=== PATIENT | male | born 1970 | race Caucasian/White ===

== ENCOUNTER 2023-09-23 07:47 | Emergency (ER) | payer BC, SELFPAY ==
--- NOTE | ~2023-09-23 | XR_ITS ---
EXAMINATION: XR CHEST CLINICAL INFORMATION: Productive cough COMPARISON: Chest 09/24/2018 TECHNIQUE: 2 views of the chest were obtained. 9:48 AM FINDINGS: No significant abnormality is noted involving the heart, lungs, mediastinum, bony thorax or soft tissues. XR/XR chest 2V IMPRESSION: No acute cardiopulmonary disease.
[2023-09-23 08:21] VITALS: BP 169/86; PULSE 75; RESP 17; TEMP 36.9; O2SAT 97; BMI 25.8
[2023-09-23 09:04] LABS: COVID-19 Test Negative (Negative); IDNOW Serial# 08D9AD1C; IDNOW Serial# 9DB6401D; Influenza A Negative (Negative)
[2023-09-23 09:05] LABS: Influenza B2 Negative (Negative)
--- NOTE | 2023-09-23 10:15 | ED_ITS ---
HPI - URI/Sore Throat General Chief Complaint: Upper Respiratory Symptoms Stated Complaint: Flu Symptoms Time Seen by Provider: 09/23/23 09:18 Source: patient, RN notes reviewed and old records reviewed Mode of arrival: ambulatory History of Present Illness HPI Narrative: 53-year-old male with no significant past medical history presenting to the ED complaining of subjective fever, chills, sweats, productive cough, body aches/myalgias & right eye erythema/crusting x few days. Admits to multiple sick contacts. Reports mild SOB. Denies chest pain, trouble, pedal edema, difficulty or inability to swallow, ear pain. Admits to wearing glasses and contacts. Denies foreign body sensation, vision change or loss Related Data Previous Rx's Medication Instructions Recorded benzonatate 100 mg capsule 100 mg PO TID PRN cough #14 caps 09/23/23 ciprofloxacin HCl 0.3 % eye drops See Rx Instructions ophthalmic 09/23/23 (eye) .COMPLEX #2.5 mL fluticasone propionate 50 2 spray intranasal DAILY #16 grams 09/23/23 mcg/actuation nasal spray,suspension (Flonase Allergy Relief) Allergies Allergy/AdvReac Type Severity Reaction Status Date / Time No Known Allergies Allergy Verified 09/23/23 08:21 Review of Systems Review of Systems: Constitutional:+Fever, + Chills, + fatigue Eye: +erythema ENT/Mouth: No Ear Pain, + Nasal Congestion, No Sinus Pain, No Hoarseness, No sore throat, + Rhinorrhea, No Swallowing Difficulty Cardiovascular: No Chest Pain, + SOB Respiratory: + Cough, + Sputum, No Wheezing Gastrointestinal: No Nausea, No Vomiting, No Diarrhea, No Constipation, No Abdominal pain Musculoskeletal: No joint pain, +myalgias, No Joint Swelling Skin: No Skin Lesions, No rash Neuro: No Weakness, No Numbness, No Paresthesias Yes all other systems are reviewed and are negative Constitutional: Constitutional: Reports as per [facility] Past Medical History Attestation statement: The following information was validated with the patient. Source: old records reviewed Onset Date is defined in the Problem List Problems that require an onset date and time if occurred within 24 hrs of arrival to the ED Aortic Dissection and Rupture; Neurologic impairment; Cardiopulmonary Arrest; Endotracheal Intubation; Insertion or Replacement of Mechanical Circulatory Assist Device Social History Social History Advance Directives: No Physical Exam Vital Signs: Vital Signs: Last Vital Signs Temp 98.5 F 09/23/23 08:21 Pulse 75 09/23/23 08:21 Resp 16 09/23/23 10:45 BP 169/86 H 09/23/23 08:21 Pulse Ox 97 09/23/23 08:21 O2 Del Method Room Air 09/23/23 08:21 BMI result Body Mass Index 25.8 Const: General: cooperative, healthy appearing and no acute distress Orientation/consciousness: patient oriented x3 Limitations: no limitations HEENT: Head: Yes normal to inspection and Yes atraumatic Ears: hearing grossly normal bilaterally, external ears normal and TM's normal bilaterally General nose exam: Normal external nose present Face and sinus: Yes normal facial exam Mouth: Normal oral and palatal mucosa present Throat: Yes posterior oropharynx normal, Yes uvula midline and No peritonsillar mass Eyes: General: appearance normal, both eyes and all related structures Conjunctivae: conjunctival abnormal right conjunctival injection circumcorneal Pupils: Equal, round and reactive pupils present EOM: EOMs intact b ilaterally Direct Ophthalmoscopy: no photophobia Neck: Neck: Yes normal visual inspection and Yes no meningeal signs Resp: Effort & Inspection: normal respiratory effort and no respiratory distress Auscultation: clear to auscultation bilaterally, no crackles and no wheezes Cardio: Rate: regular rate Heart sounds: S1 normal heart sound present and S2 normal heart sound present Skin: Rashes: no rashes Wounds: no wounds Neuro: General: patient oriented x3, tone normal and no meningeal signs Cranial nerves: Yes CN's II-XII intact bilaterally and Yes Equal, round and reactive pupils present Gait exam (Neuro): Normal gait present Extrem: General: Yes normal to inspection Course Course Course Narrative: -COVID and flu negative -CXR unremarkable Results discussed with patient including worrisome signs and symptoms and strict return precautions, and when to return to the emergency department. They verbalized understanding and feel safe for discharge at this time. Medications Administered Discontinued Medications Generic Name Dose Route Start Last Admin Trade Name Freq PRN Reason Stop Dose Admin Albuterol Sulfate 2 puff 09/23/23 09:40 09/23/23 10:45 Albuterol Sulfate 90 Mcg 8 Gm Inhaler INHALE 09/23/23 09:41 2 puff ONCE ONE Administration Ketorolac Tromethamine 30 mg 09/23/23 10:35 09/23/23 10:58 Ketorolac Tromethamine 30 Mg/Ml Vial IM 09/23/23 10:36 30 mg ONCE ONE Administration Medical Decision Making Medical Decision Making [facility] Narrative: 53-year-old male with no significant past medical history presenting to the ED complaining of subjective fever, chills, sweats, productive cough, body aches/myalgias & right eye erythema/crusting x few days. On exam vital signs stable, NAD, nontoxic appearing, lungs CTA, oropharynx WNL, right eye with conjunctival injection. Concern for viral illness vs conjunctivitis vs pneumonia/bronchitis. Low suspicion for corneal abrasion/ulceration, periorbital/orbital cellulitis or W[employer]/retropharyngeal abscess Plan: Viral testing, CXR, albuterol inhaler for discharge Please refer to course for remaining clinical decision making, interpretation of labs/imaging results, and discussions with consultants and/or family members. Differential Diagnosis Differential Diagnoses: The differential diagnosis associated with the presentation includes As above Lab Data [facility] Lab Attestation statement: I reviewed the patient's lab results. Labs: Lab Results 09/23/23 Range/Units 08:44 COVID-19 (VÍCTOR) Negative (Negative) COVID-19 Clin Com See Note Influenza Type A (PINO) Negative (Negative) Influenza Type B (PINO) Negative (Negative) Influenza A & B Note See Note Independent Interpretation I performed an independent interpretation of an: Plain X-Ray Radiology Impression Discussion of test interpretation with radiology: I have reviewed the radiologist's reading. External Record Review External record reviewed: Inpatient record, Office record, Outpatient record, Prior outpatient labs, Prior outpatient radiology, Primary care record and Outside ED record Tests considered The following testing was considered but not selected: As above Prescription Management I considered prescription management with: Pain Medication, Antiviral and Antibiotic Discharge Plan Discharge Clinical Impression: Upper respiratory infection, Conjunctivitis Patient Disposition: Home, Self-Care Instructions: Upper Respiratory Infection (DC), Conjunctivitis (ED) Additional Instructions: You have a virus --No antibiotics are indicated at this time, your x-ray does not show pneumonia You also have conjunctivitis, ciprofloxacin eye drops will help treat this. Please avoid wearing contacts, change your contacts as well as your pillow cases, this is contagious. Wash your hands, avoid touching eye Tessalon Perles are for cough, take as needed. Flonase as a nasal decongestant Make sure you are staying hydrated. Drink plenty of fluids. Rest Alternate Tylenol and Motrin at home as needed for body aches and fever Follow-up with your doctor. If symptoms persist or worsen return to the emergency department *If you are a child & not tolerating liquid or urinating for more than 6 hours, or fevers are uncontrolled with medications at home, return to the emergency department* Prescriptions: New ciprofloxacin HCl 0.3 % drops See Rx Instructions .ROUTE .COMPLEX Qty: 2.5 0RF Rx Instructions: put 1-2 drps in affected eye(s) every 2hr up to 8 times/day x2days; then 4 times/day x5days benzonatate 100 mg capsule 100 mg PO TID PRN (Reason: cough) Qty: 14 0RF fluticasone propionate [Flonase Allergy Relief] 50 mcg/actuation spray,suspension 2 spray intranasal DAILY Qty: 16 0RF Rx Instructions: administer into each nostril Referrals: Evan Rosa MD [Primary Care Provider] - Stand Alone Forms: Work/School Release Interventions: ED Discharge Assessment Last Done: 09/23/23 11:09 Discharge Date/Time: 09/23/23 11:10
[2023-09-23 10:45] VITALS: RESP 16
[2023-09-23] MEDS: Albuterol Sulfate 90 MCG 8 GM INHALER 2 PUFF INHALE (10:45)
[2023-09-23] MEDS: Ketorolac Tromethamine 30 MG/ML VIAL IM (10:58)
== END 2023-09-23 11:10 | disposition home or self-care (01) ==
PROVIDERS: Emergency Provider Emergency Medicine Emergency Medical Services; PCP Hospitalist
DX: J06.9 Acute upper respiratory infection, unspecified (principal); H10.9 Unspecified conjunctivitis; R50.9 Fever, unspecified; M79.10 Myalgia, unspecified site; R05.9 Cough, unspecified; R06.02 Shortness of breath; Z11.52 Encounter for screening for COVID-19; Z20.822 Contact with and (suspected) exposure to COVID-19; Z79.899 Other long term (current) drug therapy
CPT/HCPCS: 71046; 87502; 87635; 96372; 99284; J1885

== ENCOUNTER 2023-09-29 11:51 | Emergency (ER) | payer BC, SELFPAY ==
--- NOTE | 2023-09-29 | ECG_ITS ---
Test Reason : cp Blood Pressure : / mmHG Vent. Rate : 083 BPM Atrial Rate : 083 BPM P-R Int : 154 ms QRS Dur : 088 ms QT Int : 348 ms P-R-T Axes : 044 006 014 degrees QTc Int : 408 ms Normal sinus rhythm Minimal voltage criteria for LVH, may be normal variant ( R in aVL ) Nonspecific T wave abnormality Abnormal ECG When compared with ECG of 24-SEP-2018 18:30, Nonspecific T wave abnormality now evident in Lateral leads Referred By: Generic ED Physician Electronically Signed By:SHALONDA DURBIN
--- NOTE | ~2023-09-29 | XR_ITS ---
EXAMINATION: XR CHEST CLINICAL INFORMATION: Difficulty breathing COMPARISON: 09/23/2023 TECHNIQUE: 2 views of the chest were obtained. FINDINGS: No significant abnormality is noted involving the heart, lungs, mediastinum, bony thorax or soft tissues. XR/XR chest 2V IMPRESSION: Unremarkable examination.
[2023-09-29 12:00] VITALS: BP 155/81; PULSE 94; RESP 20; TEMP 36.3; O2SAT 97; BMI 25.8
--- NOTE | 2023-09-29 12:00 | ED_ITS ---
HPI - General Adult General Chief complaint: Upper Respiratory Symptoms Stated complaint: diff breathing/ chest pain Time Seen by Provider: 09/29/23 12:46 Source: patient Mode of arrival: ambulatory Limitations: no limitations History of Present Illness HPI narrative: Patient is a 53 year old assigned male at with no reported medical history presenting to the emergency department today with persistent cough. Patient states that he was seen on 09/23/2023 with the same symptoms and they have not resolved. Patient denies any dizziness, lightheadedness, abdominal pain, nausea, vomiting, fever, chills, blurry vision, double vision, loss of vision, chest pain, difficulty breathing, shortness of breath, back pain, night sweats, pain with urination, increased urinary frequency, increased urinary urgency, blood in his urine or stool, syncope or a near syncopal episode, recent trauma or falls, bowel incontinence, bladder incontinence, bowel retention, bladder retention, or any other complaints at this time. Onset (ago): day(s) (7) Severity: mild Severity scale (1-10): 3 Relieving factors: none Exacerbating factors: none Associated symptoms: cough Related Data Previous Rx's Medication Instructions Recorded benzonatate 100 mg capsule 100 mg PO TID PRN cough #14 caps 09/23/23 ciprofloxacin HCl 0.3 % eye drops See Rx Instructions ophthalmic 09/23/23 (eye) .COMPLEX #2.5 mL fluticasone propionate 50 2 spray intranasal DAILY #16 grams 09/23/23 mcg/actuation nasal spray,suspension (Flonase Allergy Relief) doxycycline hyclate 100 mg tablet 100 mg PO BID 7 days #14 tabs 09/29/23 prednisone 20 mg tablet 20 mg PO DAILY 7 days #7 tabs 09/29/23 Allergies Allergy/AdvReac Type Severity Reaction Status Date / Time No Known Allergies Allergy Verified 09/29/23 12:00 Review of Systems Constitutional: Constitutional: Reports no additional constitutional complaints, Denies chills, Denies fever(s) and Denies night sweats Eyes: Eyes: Reports no additional eye complaints, Denies blurry vision, Denies change in vision, Denies diplopia, Denies eye discharge, Denies loss of vision and Denies eye pain ENT: Denies dizziness Cardiovascular: Cardiovascular: Reports no additional cardiovascular complaints, Denies chest pain, Denies lightheadedness, Denies Loss of Consciousness and Denies dyspnea Respiratory: Respiratory: Reports no additional respiratory complaints, Reports cough and Denies dyspnea Gastrointestinal: Gastrointestinal: Reports no additional gastrointestinal complaints, Denies abdominal pain, Denies melena, Denies hematochezia, Denies change in bowel habits and Denies change in stool character Genitourinary: Genitourinary: Reports no additional male genitourinary complaints, Denies hematuria, Denies oliguria, Denies difficulty urinating, Denies dysuria, Denies urinary frequency, Denies urinary hesitancy, Denies urinary incontinence and Denies urinary urgency Musculoskeletal: Musculoskeletal: Reports no additional musculoskeletal complaints, Denies numbness and Denies tingling Neurologic: Denies dizziness, Denies loss of vision, Denies numbness and Denies tingling Psychiatric: Psychiatric: Reports no additional psychiatric complaints Endocrine: Endocrine: Reports no additional endocrine complaints Hematologic/Lymphatic: Hematologic/Lymphatic: Reports no additional hemat ologic/lymphatic complaints Allergic/Immunologic: Allergic/Immunologic: Reports no additional allergic/immunologic complaints PMFSH Past Medical History Attestation statement: The following information was validated with the patient. Source: old records reviewed and nursing notes reviewed Onset Date is defined in the Problem List Problems that require an onset date and time if occurred within 24 hrs of arrival to the ED Aortic Dissection and Rupture; Neurologic impairment; Cardiopulmonary Arrest; Endotracheal Intubation; Insertion or Replacement of Mechanical Circulatory Assist Device Social History Social History Advance Directives: No Advance Directives Information Provided: Yes Physical Exam ED Vital Signs: Vital Signs - 24 hr 09/29/23 12:00 Temperature 97.3 F Pulse Rate 94 Respiratory Rate 20 Blood Pressure 155/81 H Pulse Oximetry 97 Oxygen Delivery Method Room Air BMI result Body Mass Index 25.8 Const General: cooperative, no acute distress, alert and awake Nutritional Appearance: well nourished Orientation/consciousness: patient oriented x3 Limitations: no limitations HENMT Head: Yes normal to inspection and Yes atraumatic Ears: hearing grossly normal bilaterally and external ears normal General nose exam: Normal external nose present, no nasal discharge noted and no epistaxis Face and sinus: Yes normal facial exam, No abrasion and No laceration Mouth: Normal oral and palatal mucosa present, no drooling and no muffled voice Eyes General: appearance normal, both eyes and all related structures Periorbital: periorbital findings normal Eyelids: Yes eyelids normal Conjunctivae: conjunctivae normal Pupils: Equal, round and reactive pupils present EOM: EOMs intact bilaterally Neck Neck: Yes normal visual inspection, Yes full ROM and Yes no lymphadenopathy Chest Chest palpation & inspection: normal inspection of the chest Resp Effort & Inspection: normal respiratory effort and able to speak in complete sentences Auscultation: clear to auscultation bilaterally GI Inspection: Yes normal to inspection Neuro General: patient oriented x3 and moves all extremities Cranial nerves: Yes Equal, round and reactive pupils present Cognition (Neuro): normal cognition Motor exam (neuro): 5/5 motor strength present throughout Sensory Exam: Normal double simultaneous stimulation for sensation Coordination: [id number] test normal Extrem General: Yes normal to inspection, Yes full ROM and Yes capillary refill normal Psych Appearance: grossly normal Mental Status: mental status grossly normal Affect: normal affect Attitude: cooperative Thought process: Normal thought process present Thought content: Normal thought content present Insight: Good insight present (Psych) Course Course Course Narrative: RME: 53 yo male hx chronic bronchitis, asthma, previous smoker (quit 20 yrs ago) here w/ difficulty breathing x6 days. + subjective fever, chills, sore throat, cough productive of green/yellow phlem. everyone at home sick w/ same symptoms. occasionally uses inhaler at home. seen here 6 days ago, becoming more short of breath. hoarse voice, lungs cta b/l plan for serology, cxr Full HPI, ROS and PE to be performed by the primary ED provider. Medications Administered Discontinued Medications Generic Name Dose Route Start Last Admin Trade Name Kiana PRN Reason Stop Dose Admin Dexamethasone Sodium Phosphate 10 mg 09/29/23 12:59 09/29/23 13:40 Dexamethasone Sod Phosphate 10 Mg/Ml Vial PO 09/29/23 13:00 10 mg ONCE ONE Administration Ketorolac Tromethamine 15 mg 09/29/23 12:59 09/29/23 13:39 Ketorolac Tromethamine 15 Mg/Ml Vial IM 09/29/23 13:00 15 mg ONCE ONE Administration Medical Decision Making Medical Decision Making [facility] Narrative: Patient is a 53 year old assigned male at with no reported medical history presenting to the emergency department today with a persistent cough. Patient's physical exam was unremarkable. Patient's chest x-ray showed no acute process. Patient's COVID-19 and influenza tests were negative. Given patient's duration of symptoms and bounce back status, will treat. I explained my physical exam findings as well as all test results to the patient. I answered all questions asked by the patient. I stressed the importance of the patient taking his medication as prescribed. I stressed the importance of the patient following up with his primary care provider. I stressed the importance of the patient returning to the emergency department immediately if his symptoms were to worsen or if he were to develop any dizziness, shortness of breath, difficulty breathing, chest pain, blurry vision, loss of vision, nausea, vomiting, abdominal pain, fever, chills, back pain, or any other complaints. Patient verbalized agreement and understanding with this treatment plan and discharge. Differential Diagnosis Differential Diagnoses: The differential diagnosis associated with the presentation includes Cough Bronchitis COVID-19 Influenza Admission/Observation Consideration of admission/observation: Escalation of care including admission/observation considered Patient would have been admitted to the hospital had his work up had any findings where hospital admission was appropriate and his clinical presentation warranted hospital admission. Lab Data [facility] Lab Attestation statement: I reviewed the patient's lab results. My interpretation of these studies and their corresponding values is that they are grossly normal. Labs: Lab Results 09/29/23 Range/Units 12:29 COVID-19 (VÍCTOR) Negative (Negative) COVID-19 Clin Com See Note Influenza Type A (PINO) Negative (Negative) Influenza Type B (PINO) Negative (Negative) Influenza A & B Note See Note Independent Interpretation I performed an independent interpretation of an: EKG and Plain X-Ray Interpretation: My interpretation is in agreement with the radiologist's impression of this imaging study. EXAMINATION: XR CHEST CLINICAL INFORMATION: Difficulty breathing COMPARISON: 09/23/2023 TECHNIQUE: 2 views of the chest were obtained. FINDINGS: No significant abnormality is noted involving the heart, lungs, mediastinum, bony thorax or soft tissues. XR/XR chest 2V IMPRESSION: Unremarkable examination. Dictated By: Michael Pollard MD Signed By: Electronically signed by Michael Pollard MD 09/29/23 1342 Vent. Rate: 083 BPM Atrial Rate: 083 BPM P-R Int: 154 ms QRS Dur: 088 ms QT Int: 348 ms P-R-T Axes: 044 006 014 degrees QTc Int: 408 ms Normal sinus rhythm Minimal voltage criteria for LVH, may be normal variant ( R in aVL ) Nonspecific T wave abnormality Abnormal ECG When compared with ECG of 24-SEP-2018 18:30, Nonspecific T wave abnormality now evident in Lateral leads Electronically Signed By:BO MOYA Dictated By: Bo Moya MD Signed By: Electronically signed by Bo Moya MD 09/29/23 1252 Radiology Impression Discussion of test interpretation with radiology: I have reviewed the radiologist's reading. Prescription Management I considered prescription management with: Antibiotic (patient prescribed an antibiotic for URI) Discharge Plan Discharge Clinical Impression: Upper respiratory infection Patient Disposition: Home, Self-Care Instructions: Upper Respiratory Infection (DC) Additional Instructions: Follow up with your primary care provider. Return to the emergency department immediately if your symptoms worsen or if you develop any dizziness, shortness of breath, difficulty breathing, chest pain, blurry vision, loss of vision, nausea, vomiting, abdominal pain, fever, chills, back pain, or any other complaints. Prescriptions: New doxycycline hyclate 100 mg tablet 100 mg PO BID 7 Days Qty: 14 0RF prednisone 20 mg tablet 20 mg PO DAILY 7 Days Qty: 7 0RF No Action ciprofloxacin HCl 0.3 % drops See Rx Instructions .ROUTE .COMPLEX Qty: 2.5 0RF Rx Instructions: put 1-2 drps in affected eye(s) every 2hr up to 8 times/day x2days; then 4 times/day x5days benzonatate 100 mg capsule 100 mg PO TID PRN (Reason: cough) Qty: 14 0RF fluticasone propionate [Flonase Allergy Relief] 50 mcg/actuation spray,suspension 2 spray intranasal DAILY Qty: 16 0RF Rx Instructions: administer into each nostril [place] [facility] [place]] (Call to establish and follow up with a primary care provider. If you already have a primary care provider, please follow up with them.) [facility] [Provider Group] (Call to establish and follow up with a primary care provider. If you already have a primary care provider, please follow up with them.) [facility] [Provider Group] (Call to establish and follow up with a primary care provider. If you already have a primary care provider, please follow up with them.) Stand Alone Forms: Work/School Release Interventions: ED Discharge Assessment Last Done: 09/29/23 13:46 Discharge Date/Time: 09/29/23 13:46 Print Language: Niuean
[2023-09-29 12:51] LABS: COVID-19 Test Negative (Negative); IDNOW Serial# 08D9AD1C; IDNOW Serial# 152EDE1D; Influenza A Negative (Negative); Influenza B2 Negative (Negative)
[2023-09-29] MEDS: Ketorolac Tromethamine 15 MG/ML VIAL IM (13:39)
[2023-09-29] MEDS: dexAMETHasone sod phosphate 10 MG/ML VIAL PO (13:40)
== END 2023-09-29 13:46 | disposition home or self-care (01) ==
PROVIDERS: Physician Assistant Medical; Emergency Provider Emergency Medicine
DX: J06.9 Acute upper respiratory infection, unspecified (principal); R06.02 Shortness of breath; R07.89 Other chest pain; Z11.52 Encounter for screening for COVID-19; Z20.828 Contact with and (suspected) exposure to other viral communicable diseases; Z79.899 Other long term (current) drug therapy
CPT/HCPCS: 71046; 87502; 87635; 93005; 96372; 99283; 99284; J1100; J1885

== ENCOUNTER → 2023-09-29 12:26 | Outpatient (BNV) | payer BC, SELFPAY | PROVIDERS: Emergency Provider Emergency Medicine; Visit Provider Internal Medicine | DX: R07.9 Chest pain, unspecified (principal) | CPT/HCPCS: 93010 ==

== ENCOUNTER 2023-10-15 07:38 | Emergency (ER) | payer BC, SELFPAY ==
[2023-10-15 07:46] VITALS: BP 135/95; PULSE 76; RESP 18; TEMP 36.3; O2SAT 97; BMI 25.8
--- NOTE | 2023-10-15 07:49 | ED_ITS ---
HPI - URI/Sore Throat General Chief Complaint: Upper Respiratory Symptoms Stated Complaint: Diff Breathing Time Seen by Provider: 10/15/23 07:48 Source: patient Mode of arrival: ambulatory Limitations: no limitations History of Present Illness HPI Narrative: 57-year-old male who presents emergency department for evaluation of persistent cough and shortness of breath. This is the patient's 3rd visit to the emergency department. He was seen on 09/23/2023 diagnosed with a viral URI treated with Tessalon Perles and Flonase. He returned on 09/29/2023 with no improvement of his symptoms and was diagnosed with acute bacterial bronchitis started on doxycycline twice a day for 7 days and prednisone once a day for 7 days. He states his cough has improved but he still coughs up thick phlegm and feels short of breath with mild dyspnea on exertion. He denied fever, chills, chest pain, nausea, vomiting or diarrhea. He denies myalgias arthralgias. Related Data Previous Rx's Medication Instructions Recorded benzonatate 100 mg capsule 100 mg PO TID PRN cough #14 caps 09/23/23 ciprofloxacin HCl 0.3 % eye drops See Rx Instructions ophthalmic 09/23/23 (eye) .COMPLEX #2.5 mL fluticasone propionate 50 2 spray intranasal DAILY #16 grams 09/23/23 mcg/actuation nasal spray,suspension (Flonase Allergy Relief) doxycycline hyclate 100 mg tablet 100 mg PO BID 7 days #14 tabs 09/29/23 prednisone 20 mg tablet 20 mg PO DAILY 7 days #7 tabs 09/29/23 albuterol sulfate 90 mcg/actuation 2 puff inhalation Q4-6H PRN 10/15/23 aerosol inhaler (ProAir HFA) shortness of breath or wheezing #6.7 grams azithromycin 250 mg tablet See Rx Instructions PO .COMPLEX #6 10/15/23 (Zithromax Z-Nahun) tabs Allergies Allergy/AdvReac Type Severity Reaction Status Date / Time No Known Allergies Allergy Verified 09/29/23 12:00 Review of Systems Review of Systems: Yes all other systems are reviewed and are negative Physical Exam Vital Signs: Vital Signs: Last Vital Signs Temp 97.4 F 10/15/23 07:46 Pulse 76 10/15/23 07:46 Resp 18 10/15/23 07:46 BP 135/95 H 10/15/23 07:46 Pulse Ox 97 10/15/23 07:46 O2 Del Method Room Air 10/15/23 07:46 BMI result Body Mass Index 25.8 Vital signs were normal Exam: General: Awake, alert in no distress Head: Normocephalic, atraumatic EENT: PERRL, Lids normal, sclera normal, conjunctiva normal, nose normal , ears normal, throat without erythema or exudates Neck: Supple, no adenopathy Lung: breath sounds symmetric, wheezing at the end of expiration, no rhonchi or rales Chest: symmetric movement, nontender Heart: regular rate and rhythm, normal S1, S2 no murmurs or rubs Abdomen: soft, non-tender, nondistended, normal bowel sounds Back: no vertebral tenderness, no CVAT Extremities: no deformities, moves all extremities symmetrically Neuro: Awake, alert, oriented, normal speech, cranial nerves intact, moves all extremities symmetrically Psych: Pleasant, cooperative Medical Decision Making Medical Decision Making MDM Narrative: 53-year-old male who presents emergency department for evaluation of productive cough, shortness of breath, dyspnea on exertion, symptoms have been present since 09/23/2023, this is the patient's 3rd visit to the emergency department, patient did complete a course of doxycycline prednisone with some improvement of his symptoms. Vital signs were normal. Physical examination did reveal wheezing at the end of expiration otherwise were unremarkable. Differential diagnosis: Pneumonia, viral bronchitis, bacterial bronchitis, bronchospasm Patient's symptoms are consistent with acute bronchitis, I did discuss viral versus bacterial infections with the patient and he with a to try a 2nd course of antibiotics since he did get some improvement with the 1st course of antibiotics. Patient was prescribed Zithromax Z-Nahun and albuterol inhaler 2 puffs 4 times a day for 4 days. Is given printed and verbal instructions. He was given a work note discharged home. Prescription Management I considered prescription management with: Antibiotic and Other (Albuterol inhaler) Discharge Plan Discharge Clinical Impression: Acute bronchitis Instructions: Acute Bronchitis (ED) Additional Instructions: Your symptoms are consistent with bronchitis which could be caused by either a bacterial infection or viral infection. I am going to treat you with the following antibiotic: Zithromax Z-Nahun, take as prescribed (2 pills on day 1 then 1 pill each day until you finish the 5 day course) Your lung exam did reveal some wheezing at the end of expiration. I am going to treat you with an albuterol inhaler. Take 2 puffs 4 times a day for the next 4- 5 days to if this improves your wheezing, shortness of breath and your cough Follow-up with your doctor in 2 days. Please return to the emergency department if your symptoms get worse or if you develop any symptoms that are concerning to you. Please see the work note Prescriptions: New albuterol sulfate [ProAir HFA] 90 mcg/actuation HFA aerosol inhaler 2 puff inhalation Q4-6H PRN (Reason: shortness of breath or wheezing) Qty: 6.7 0RF azithromycin [Zithromax Z-Nahun] 250 mg tablet See Rx Instructions .ROUTE .COMPLEX Qty: 6 0RF Rx Instructions: take 500 mg today (day 1), then 250 mg for 4 days (days 2-5) No Action ciprofloxacin HCl 0.3 % drops See Rx Instructions .ROUTE .COMPLEX Qty: 2.5 0RF Rx Instructions: put 1-2 drps in affected eye(s) every 2hr up to 8 times/day x2days; then 4 times/day x5days benzonatate 100 mg capsule 100 mg PO TID PRN (Reason: cough) Qty: 14 0RF fluticasone propionate [Flonase Allergy Relief] 50 mcg/actuation spray,son[employer] pension 2 spray intranasal DAILY Qty: 16 0RF Rx Instructions: administer into each nostril doxycycline hyclate 100 mg tablet 100 mg PO BID 7 Days Qty: 14 0RF prednisone 20 mg tablet 20 mg PO DAILY 7 Days Qty: 7 0RF Stand Alone Forms: Work/School Release
== END 2023-10-15 08:14 | disposition home or self-care (01) ==
PROVIDERS: Emergency Provider Emergency Medicine Emergency Medical Services
DX: J20.9 Acute bronchitis, unspecified (principal)
CPT/HCPCS: 99282; 99283

== ENCOUNTER 2023-10-31 12:25 | Emergency (ER) | payer BC, SELFPAY ==
[2023-10-31 12:49] VITALS: BP 156/88; PULSE 79; RESP 18; TEMP 36.2; O2SAT 98; BMI 25.8
--- NOTE | 2023-10-31 12:52 | ED.GENADULT ---
HPI - General Adult General Chief complaint: General Medical Stated complaint: wants to be covid tested Time Seen by Provider: 10/31/23 12:54 Source: patient Mode of arrival: ambulatory Limitations: no limitations History of Present Illness HPI narrative: 53 year old male with no significant pmhx presents to the ED today requesting testing for COVID-19. He states that his grandson tested positive for COVID while at a physical this morning. He states that he has been around his grandson recently and is concerned he may have COVID. He denies any current symptoms. Denies fever, chills, nausea vomiting, abdominal pain, chest pain, shortness of breath Denies recent illness. States he is up-to-date on COVID vaccines. Related Data Previous Rx's Medication Instructions Recorded benzonatate 100 mg capsule 100 mg PO TID PRN cough #14 caps 09/23/23 ciprofloxacin HCl 0.3 % eye drops See Rx Instructions ophthalmic 09/23/23 (eye) .COMPLEX #2.5 mL fluticasone propionate 50 2 spray intranasal DAILY #16 grams 09/23/23 mcg/actuation nasal spray,suspension (Flonase Allergy Relief) doxycycline hyclate 100 mg tablet 100 mg PO BID 7 days #14 tabs 09/29/23 prednisone 20 mg tablet 20 mg PO DAILY 7 days #7 tabs 09/29/23 albuterol sulfate 90 mcg/actuation 2 puff inhalation Q4-6H PRN 10/15/23 aerosol inhaler (ProAir HFA) shortness of breath or wheezing #6.7 grams azithromycin 250 mg tablet See Rx Instructions PO .COMPLEX #6 10/15/23 (Zithromax Z-Nahun) tabs Allergies Allergy/AdvReac Type Severity Reaction Status Date / Time No Known Allergies Allergy Verified 09/29/23 12:00 Review of Systems Review of Systems: Constitutional: No fever, chills, fatigue, night sweats, weight changes ENT/Mouth: No ear pain, hearing loss, nasal congestion, sinus pain, rhinorrhea, sore throat Eyes: No eye pain, swelling, redness, vision changes, discharge Cardio: No chest pain, palpitations, SHANKAR, orthopnea, peripheral edema Pulm: No SOB, cough, sputum, wheezing, dyspnea, hemoptysis GI: No nausea, vomiting, hematemesis, abdominal pain, diarrhea, constipation, hematochezia, melena : No irregular bleeding, dysuria, frequency, urgency, hesitancy, hematuria, flank pain MSK: No back pain, neck pain, joint pain, myalgias Skin: No lesions, rashes Neuro: No weakness, numbness, paresthesias, LOC, dizziness, headache All other systems reviewed and are negative. [facility] Past Medical History Attestation statement: The following information was validated with the patient. Source: old records reviewed and nursing notes reviewed Social History Social History Advance Directives: No Advance Directives Information Provided: Yes Physical Exam ED Vital Signs: Vital Signs - 24 hr 10/31/23 12:49 Temperature 97.2 F Pulse Rate 79 Respiratory Rate 18 Blood Pressure 156/88 H Pulse Oximetry 98 Oxygen Delivery Method Room Air BMI result Body Mass Index 25.8 Vital signs stable, afebrile Const General: cooperative, healthy appearing, comfortable, no acute distress, alert and awake Orientation/consciousness: patient oriented x3 Limitations: no limitations HENMT Other: + posterior oropharynx without erythema or edema. uvula is midline, no tonsilar exudates or peritonsillar masses, controlling secretions and speaking in complete sentences. Head: Yes normal to inspection Ears: hearing grossly normal bilaterally, external ears normal, TM's normal bilaterally, EAC's normal, mastoids normal and no periauricular adenopathy General nose exam: Normal external nose present and No nasal discharge present Face and sinus: Yes normal facial exam and Yes sinuses nontender Eyes General: appearance normal, both eyes and all related structures Conjunctivae: conjunctivae normal Sclerae: sclerae normal Pupils: Equal, round and reactive pupils present Neck Other: + no cervical, submandibular or submental LAD. Neck: Yes normal visual inspection and Yes full ROM Resp Effort & Inspection: normal respiratory effort Auscultation: clear to auscultation bilaterally Cardio Rate: regular rate Rhythm: regular rhythm GI Inspection: Yes normal to inspection Palpation (GI): Soft to palpation and nontender Skin General skin exam: no rashes or lesions noted Neuro General: patient oriented x3 and gait normal Cranial nerves: Yes Equal, round and reactive pupils present Course Course Course Narrative: 1324-- Discussed plan with patient. Will send covid swabs to lab and call patient with results. Patient is agreeable with disposition and stable for discharge. 1341-- Patient tested negative for covid. I personally called patient and informed him of results. Discussed worrisome signs and symptoms of when to return to the ED. All questions answered at this time. Medical Decision Making Medical Decision Making [facility] Narrative: 53 year old male with no significant pmhx presents to the ED today requesting testing for COVID-19. Patient noted to be hypertensive to 156/88, vitals otherwise stable. Afebrile. He is nontoxic-appearing and in no acute distress. Lungs CTA bilaterally. RRR. No calf tenderness. Bilateral EACs and TMs WNL. Posterior oropharynx WNL. Exam essentially unremarkable. At this time I am not concern for upper respiratory infection or viral illness. Plan for COVID testing and discharge. Differential Diagnosis Differential Diagnoses: The differential diagnosis associated with the presentation includes as above. Admission/Observation Not indicated Lab Data [facility] Lab Attestation statement: I reviewed the patient's lab results. as above Labs: Lab Results 10/31/23 Range/Units 13:09 COVID-19 (VÍCTOR) Negative (Negative) COVID-19 Clin Com See Note Prescription Management I considered prescription management with: Antiviral Social Determinants Patient?s care significantly limited by Social Determinants of Health including: Other Social Determinant of Health Critical Care Time Critical Care Time Critical Care Time: No Discharge Plan Discharge Clinical Impression: Encounter for laboratory testing for COVID-19 virus Patient Disposition: Home, Self-Care Instructions: COVID-19 (Coronavirus Disease 2019) (ED) Additional Instructions: You were tested for COVID today. You will be called with any positive results. If you happen to miss the call, you may look at your results on your patient portal. If symptoms persist or worsen please return to the ED. In the case of an emergency call 911. Prescriptions: No Action ciprofloxacin HCl 0.3 % drops See Rx Instructions .ROUTE .COMPLEX Qty: 2.5 0RF Rx Instructions: put 1-2 drps in affected eye(s) every 2hr up to 8 times/day x2days; then 4 times/day x5days benzonatate 100 mg capsule 100 mg PO TID PRN (Reason: cough) Qty: 14 0RF fluticasone propionate [Flonase Allergy Relief] 50 mcg/actuation spray,suspension 2 spray intranasal DAILY Qty: 16 0RF Rx Instructions: administer into each nostril doxycycline hyclate 100 mg tablet 100 mg PO BID 7 Days Qty: 14 0RF prednisone 20 mg tablet 20 mg PO DAILY 7 Days Qty: 7 0RF albuterol sulfate [ProAir HFA] 90 mcg/actuation HFA aerosol inhaler 2 puff inhalation Q4-6H PRN (Reason: shortness of breath or wheezing) Qty: 6.7 0RF azithromycin [Zithromax Z-Nahun] 250 mg tablet See Rx Instructions .ROUTE .COMPLEX Qty: 6 0RF Rx Instructions: take 500 mg today (day 1), then 250 mg for 4 days (days 2-5) Referrals: [facility] [place] Primary Care[facility]ette [Provider Group] [facility] [place] Primary [facility]oyd [Provider Group] Interventions: ED Discharge Assessment Last Done: 10/31/23 13:13 Discharge Date/Time: 10/31/23 13:17
[2023-10-31 13:27] LABS: COVID-19 Test Negative (Negative); IDNOW Serial# 152EDE1D
== END 2023-10-31 13:17 | disposition home or self-care (01) ==
LOC: HO.ED 13:14
PROVIDERS: Physician Assistant Medical; Emergency Provider Student in an Organized Health Care Education/Training Program
DX: Z11.52 Encounter for screening for COVID-19 (principal); Z79.899 Other long term (current) drug therapy
CPT/HCPCS: 87635; 99282; 99283

== ENCOUNTER 2023-11-02 15:27 | Emergency (ER) | payer BC, SELFPAY ==
[2023-11-02 15:34] VITALS: BP 164/112; PULSE 77; O2SAT 96
[2023-11-02 15:35] VITALS: BP 129/84; PULSE 81; RESP 16; TEMP 36.6; O2SAT 97; BMI 24.4
--- NOTE | 2023-11-02 16:14 | ED.ALCOHOL ---
HPI - Alcohol General Chief Complaint: ETOH/Substance Use Stated Complaint: ETOH?,FOUND SLEEPING IN CAR. Time Seen by Provider: 11/02/23 16:02 Source: patient Mode of arrival: EMS History of Present Illness HPI narrative: 53-year-old male was found asleep in his car by [employer], he admitted to the police that he had consumed alcohol and had pulled over the side of the road, he was given the choice to come into the emergency room and his car was impounded. Patient denies SI/HI and is not interested in detox. Related Data Previous Rx's Medication Instructions Recorded benzonatate 100 mg capsule 100 mg PO TID PRN cough #14 caps 09/23/23 ciprofloxacin HCl 0.3 % eye drops See Rx Instructions ophthalmic 09/23/23 (eye) .COMPLEX #2.5 mL fluticasone propionate 50 2 spray intranasal DAILY #16 grams 09/23/23 mcg/actuation nasal spray,suspension (Flonase Allergy Relief) doxycycline hyclate 100 mg tablet 100 mg PO BID 7 days #14 tabs 09/29/23 prednisone 20 mg tablet 20 mg PO DAILY 7 days #7 tabs 09/29/23 albuterol sulfate 90 mcg/actuation 2 puff inhalation Q4-6H PRN 10/15/23 aerosol inhaler (ProAir HFA) shortness of breath or wheezing #6.7 grams azithromycin 250 mg tablet See Rx Instructions PO .COMPLEX #6 10/15/23 (Zithromax Z-Nahun) tabs Allergies Allergy/AdvReac Type Severity Reaction Status Date / Time No Known Allergies Allergy Verified 09/29/23 12:00 Review of Systems Review of Systems: Pertinent positives and negatives as stated in HPI PMFSH Past Medical History Source: nursing notes reviewed Social History Social History Advance Directives: No Advance Directives Information Provided: No Physical Exam ED Vital Signs: Vital Signs - 24 hr 11/02/23 15:35 Temperature 98 F Pulse Rate 81 Respiratory Rate 16 Blood Pressure 129/84 Pulse Oximetry 97 Oxygen Delivery Method Room Air BMI result Body Mass Index 24.4 VITAL SIGNS: Reviewed. GENERAL: Well developed, well nourished, in no acute distress. HEAD: Normocephalic/atraumatic EYES: PERRLA, EOMI EARS: Ext canals without abnormality NOSE: Nares patent bilateral OROPHARYNX: no oral lesions noted, posterior pharynx clear NECK: Supple, no adenopathy LUNGS: Normal breath sounds. No adventitious sounds or accessory muscle use. SpO2<97> CARDIOVASCULAR: Regular rate and rhythm without noted murmurs ABDOMEN: Soft, non-tender, non-distended with bowel sounds. MUSCULOSKELETAL: No tenderness, deformities, or effusions noted on gross inspection. EXTREMITIES: No cyanosis, clubbing or edema. SKIN: Inspection of the skin reveals no rashes NEUROLOGIC: Alert and oriented x 4. Strength and sensation to light touch were grossly intact x 4. Medical Decision Making Medical Decision Making MDM Narrative: 53-year-old male with history and clinical presentation consistent with alcohol use disorder, ambulates with a steady gait, not tremulous, no slurred speech. Patient is clinically sober, his car is impounded, he is in communication with family and friends and he is otherwise discharged by his request and as mentioned above deemed to be clinically sober.. Differential Diagnosis Differential Diagnoses: The differential diagnosis associated with the presentation includes Please see the discussion above Admission/Observation Consideration of admission/observation: Escalation of care including admission/observation considered Please see the discussion above External Record Review External record reviewed: Outpatient record and Prior outpatient labs Critical Care Time Critical Care Time Critical Care Time: Yes Total Critical Care Time: 30 Attestation: I personally attest to this time spent taking care of the patient. Discharge Plan Discharge Clinical Impression: Alcohol use disorder Patient Disposition: Home, Self-Care Instructions: Alcohol Use Disorder (ED) Additional Instructions: 1. Please follow-up with your primary care doctor your earliest convenience in resume all prescribed home medications. Return to the ER if you need any other emergent services. Prescriptions: No Action ciprofloxacin HCl 0.3 % drops See Rx Instructions .ROUTE .COMPLEX Qty: 2.5 0RF Rx Instructions: put 1-2 drps in affected eye(s) every 2hr up to 8 times/day x2days; then 4 times/day x5days benzonatate 100 mg capsule 100 mg PO TID PRN (Reason: cough) Qty: 14 0RF fluticasone propionate [Flonase Allergy Relief] 50 mcg/actuation spray,suspension 2 spray intranasal DAILY Qty: 16 0RF Rx Instructions: administer into each nostril doxycycline hyclate 100 mg tablet 100 mg PO BID 7 Days Qty: 14 0RF prednisone 20 mg tablet 20 mg PO DAILY 7 Days Qty: 7 0RF albuterol sulfate [ProAir HFA] 90 mcg/actuation HFA aerosol inhaler 2 puff inhalation Q4-6H PRN (Reason: shortness of breath or wheezing) Qty: 6.7 0RF azithromycin [Zithromax Z-Nahun] 250 mg tablet See Rx Instructions .ROUTE .COMPLEX Qty: 6 0RF Rx Instructions: take 500 mg today (day 1), then 250 mg for 4 days (days 2-5)
== END 2023-11-02 16:34 | disposition home or self-care (01) ==
PROVIDERS: Emergency Provider Student in an Organized Health Care Education/Training Program
DX: F10.129 Alcohol abuse with intoxication, unspecified (principal); Y90.9 Presence of alcohol in blood, level not specified
CPT/HCPCS: 99282

== ENCOUNTER 2023-12-10 07:23 | Observation (INO) | payer BC, SELFPAY ==
[2023-12-10] VITALS (7 sets, daily range): BP systolic 130–158; BP diastolic 63–94; PULSE 62–84; RESP 16–20; TEMP 36–37.3; O2SAT 95–99; BMI 23.6; BMI 24.0
--- NOTE | ~2023-12-10 | XR_ITS ---
EXAMINATION: XR CHEST CLINICAL INFORMATION: Productive cough COMPARISON: Chest radiograph from 09/29/2023 TECHNIQUE: 2 views of the chest were obtained. FINDINGS: Chronic interstitial lung markings. No pneumothorax. Trachea is midline. Cardiac mediastinal silhouette is not enlarged. No large pleural effusion. Osseous structures are intact. Soft tissues are unremarkable. XR/XR chest 2V IMPRESSION: No acute cardiopulmonary process.
--- NOTE | ~2023-12-10 | CT_ITS ---
EXAMINATION: CT ABDOMEN AND PELVIS WITH CONTRAST CLINICAL INFORMATION: Right upper and lower quadrant abdominal pain, anorexia, vomiting COMPARISON: None available. TECHNIQUE: Multidetector volumetric images were obtained from the superior aspect of the liver through the pubic symphysis following administration 85 mL of Omnipaque 350 intravenous contrast. Sagittal and coronal reformatted images were obtained on the technologist's workstation. Oral contrast: No This CT examination was performed using dose optimization techniques as appropriate, variously including the following: *Automated exposure control *Adjustment of mA and/or kV according to patient size (this includes techniques or standardized protocols for targeted exams where dose is matched to indication/reason for exam; i.e. extremities or head) *Use of iterative reconstruction technique DLP: 445.48 mGy-cm FINDINGS: LUNG BASES: Bilateral lung bases are clear. LIVER: No focal lesion is seen in the liver. GALLBLADDER AND BILIARY TREE: Gallbladder appears unremarkable without calcified stones. Common bile duct is not dilated. SPLEEN: The spleen is normal in size without focal lesion. Tiny accessory spleen measuring 0.8 cm in diameter is seen medial to the anterior splenic body. PANCREAS: The pancreas appears unremarkable. ADRENAL GLANDS: Adrenal glands are normal in size without focal lesion bilaterally. KIDNEYS: Bilateral kidneys are normal in size without focal lesion. BOWELS: There is no abnormal dilatation of the large and small bowel loops. RETROPERITONEUM: No abnormally enlarged retroperitoneal lymph nodes, mass or hematoma could be seen. BLOOD VESSELS: Abdominal aorta is normal in size and smoothly patent. ABDOMINAL WALL: Small umbilical hernia containing mesenteric fat is seen. PERITONEUM: There was no ascites. There were no abdominal peritoneal inflammatory changes seen. No free peritoneal air was seen. No abnormally enlarged mesenteric lymph nodes are found. BONES: Mild posterior L5-S1 disc protrusion is seen. No fracture or dislocation. No focal bone lesion diagnostic of metastatic disease could be seen in the lumbar region. EXAMINATION: CT pelvis. TECHNIQUE: Multiple axial images were obtained from iliac crest to the inferior pubic rami following the administration of 85 mL of Omnipaque 350. Coronal and sagittal images were reconstructed from axial image data. Dose reduction technique: One or more of the following individual dose optimization techniques were used including: Automated exposure control, mA and/or kV were adjusted according to patient size or iterative reconstruction. FINDINGS: URINARY BLADDER: Urinary bladder fills normally with urine. BOWELS: There is no abnormal dilatation of the large and small bowel loops. At L4 level, a relatively high lying abnormally thickened enhancing appendix is seen projecting posterior and superior to the cecum, measuring up to 1.0 cm in transverse diameter. Multiple diverticula are seen in the sigmoid colon without inflammatory changes. GENITAL ORGANS: Seminal vesicles are unremarkable. Prostate gland is normal. LYMPH NODES: No abnormally enlarged iliac or inguinal lymph nodes are seen. PERITONEUM: No inflammatory changes, ascites or free peritoneal air are found in the pelvis. BONES: No fracture or dislocation. No focal bone lesion diagnostic of metastatic disease could be seen in the pelvis. CT/CT abdomen pelvis w IV con IMPRESSION: 1. Findings are compatible with high lying acute appendicitis without signs of perforation or abscess. 2. Sigmoid diverticulosis without evidence of diverticulitis. This critical result was discussed with Mary Sharma physician assistant tennis professional on 12/10/2023 at 1333 hours and it was ascertained that the content and urgency of this report was understood at the time of direct communication.
--- NOTE | 2023-12-10 08:25 | ED_ITS ---
HPI - Nausea/Vomiting/Diarrhea General Chief complaint: Nausea/Vomiting/Diarrhea Stated complaint: Vomiting Diarrhea Time Seen by Provider: 12/10/23 08:08 Source: patient, RN notes reviewed and old records reviewed Mode of arrival: ambulatory Limitations: no limitations History of Present Illness HPI Narrative: 53-year-old male with no significant pmhx presents to the ED today for evaluation nausea, vomiting, diarrhea x4 days. He reports waking up 4 days ago feeling ?off?. He felt hot and cold all day however did not have a documented temperature and has had a cough productive of clear/white sputum. He had to miss work over the last two days as he felt nauseous. Admits that yesterday he began vomiting and also began having loose stools. He last vomited around 1500 yesterday. He has been unable to tolerate PO intake besides water. He does not recall what he ate 4 days ago prior to onset of symptoms however states he typically cooks his own meals. Denies known sick contacts. Denies recent travel. Denies fever, sore throat, chest pain, shortness of breath, palpitations, abdominal pain, flank pain, dysuria, hematuria, constipation. Related Data Home Medications Medication Instructions Recorded Confirmed esomeprazole magnesium 20 mg 20 mg PO DAILY PRN Heartburn 12/10/23 12/10/23 capsule,delayed release (Nexium) naproxen sodium 220 mg tablet 220 mg PO BID PRN Pain 12/10/23 12/10/23 (Aleve) Previous Rx's Medication Instructions Recorded albuterol sulfate 90 mcg/actuation 2 puff inhalation Q4-6H PRN 10/15/23 aerosol inhaler (ProAir HFA) shortness of breath or wheezing #6.7 grams Allergies Allergy/AdvReac Type Severity Reaction Status Date / Time No Known Allergies Allergy Verified 12/10/23 08:08 Review of Systems 2 Review of Systems: Constitutional: No fever, chills, fatigue, night sweats, weight changes ENT/Mouth: No ear pain, hearing loss, nasal congestion, sinus pain, rhinorrhea, sore throat Eyes: No eye pain, swelling, redness, vision changes, discharge Cardio: No chest pain, palpitations, SHANKAR, orthopnea, peripheral edema Pulm: No SOB, cough, sputum, wheezing, dyspnea, hemoptysis GI: No hematemesis, abdominal pain, constipation, hematochezia, melena, + nausea, + vomiting, + diarrhea : No irregular bleeding, dysuria, frequency, urgency, hesitancy, hematuria, flank pain, urinary flow changes, urinary incontinence or retention MSK: No back pain, neck pain, joint pain, myalgias Skin: No lesions, rashes Neuro: No weakness, numbness, paresthesias, LOC, dizziness, headache Psych: No anxiety/panic, depression, SI/HI, AH/VH All other systems reviewed and are negative. [facility] Past Medical History Attestation statement: The following information was validated with the patient. Source: old records reviewed and nursing notes reviewed Medical History Feeling unwell Ex-smoker Social History Social History Alcohol intake: current Alcohol type: beer Comment: 2 24oz beers, several times per week Smoked in Last 30 Days: No Advance Directives: No Physical Exam 2 Vital Signs: Vital Signs: Last Vital Signs Temp 99.1 F 12/10/23 16:06 Pulse 75 12/10/23 16:06 Resp 20 12/10/23 16:06 BP 144/82 H 12/10/23 16:06 Pulse Ox 98 12/10/23 16:06 O2 Del Method Room Air 12/10/23 16:06 BMI result Body Mass Index 23.6 Patient hypertensive, vitals otherwise WNL. Afebrile. Const: General: cooperative, healthy appearing, comfortable and no acute distress Orientation/consciousness: patient oriented x3 Limitations: no limitations HEENT: Other: + posterior oropharynx without erythema or edema. No tonsillar exudates or peritonsillar masses. Uvula midline. Controlling secretions and speaking complete sentences. Head: Yes normal to inspection, Yes No palpable skull fracture present, Yes normocephalic and Yes atraumatic Ears: hearing grossly normal bilaterally, external ears normal, TM's normal bilaterally, EAC's normal, mastoids normal and no periauricular adenopathy Eyes: General: appearance normal, both eyes and all related structures C onjunctivae: conjunctivae normal Sclerae: sclerae normal Pupils: Equal, round and reactive pupils present Neck: Neck: Yes normal visual inspection, Yes full ROM, Yes no lymphadenopathy and Yes no JVD Resp: Effort & Inspection: normal respiratory effort and able to speak in complete sentences Auscultation: clear to auscultation bilaterally, no crackles, no rhonchi and no wheezes Cardio: Rate: regular rate Rhythm: regular rhythm GI: Other: + abdomen soft, nondistended, nontender to palpation, no rebound tenderness or guarding. Normoactive bowel sounds x4. Inspection: Yes normal to inspection : General: Yes no CVA tenderness Back/Spine/Pelvis: Back: no CVA tenderness Skin: General skin exam: no rashes or lesions noted Neuro: General: patient oriented x3 and gait normal Cranial nerves: Yes Equal, round and reactive pupils present Extrem: General: Yes normal to inspection Course Course Course Narrative: 1017-- CBC without leukocytosis or anemia. Chemistry without acute electrolyte abnormality requiring intervention. Elevated total bilirubin, AST, ALT > not patient's baseline when compared to priors. Lipase WNL. Will obtained CT scan abd/pelvis to rule out intra-abdominal pathology. Patient receiving IVFs. He has tested negative for flu, covid, and RSV. 1340-- I received critical call from [facility] regarding patient's CT results. CT abdomen/pelvis showing findings compatible with high lying acute appendicitis without perforation or abscess. It also shows sigmoid diverticulosis without acute diverticulitis. > these findings were discussed with Dr. Morton who is currently on-call for General surgery. Dr. Morton states that he plans to review the case and come to evaluate the patient. > all findings discussed with patient. I informed him that Dr. Morton will be coming down to speak with him so that we can determine disposition. > given findings, lactic and blood cultures ordered along with Zosyn. > I do not suspect sepsis. 1404-- I had a discussion with Dr. Morton regarding disposition. After personally reviewing CT scan, he believes findings are more consistent with gastroenteritis. He has not 100% convinced that this is a true acute appendicitis. Given patient's presentation, I agree with him. He is requesting that the patient be admitted to medicine for fluid resuscitation so that he can follow-up with him in the morning. Patient has remained hemodynamically stable throughout visit today and continues to deny pain. > I discussed this with hospitalist, Dr. Grullon who has agreed to admit patient to medicine. Dr. Drummond to place admission orders. Medications Administered Generic Name Dose Route Start Last Admin Trade Name Freq PRN Reason Stop Dose Admin Enoxaparin Sodium 40 mg 12/10/23 15:00 12/10/23 14:41 Enoxaparin Sodium 40 Mg/0.4 Ml Syringe SUBCUT Not Given Q24H AXEL Sodium Chloride 1,000 mls @ 80 mls/hr 12/10/23 14:30 12/10/23 14:45 Ns IVCONT 80 mls/hr .[id number] AXEL Administration Pantoprazole Sodium 40 mg 12/10/23 14:25 12/10/23 14:45 Pantoprazole Sodium 40 Mg/10 Ml Vial IVPUSH 40 mg DAILY@0630 AXEL Administration Sodium Chloride 3 ml 12/10/23 16:00 12/10/23 15:59 0.9 % Sodium Chloride Flush 3 Ml Syringe IVFLUSH Not Given QSHIFT AXEL Discontinued Medications Generic Name Dose Route Start Last Admin Trade Name Freq PRN Reason Stop Dose Admin Sodium Chloride 1,000 mls @ 999 mls/hr 12/10/23 08:30 12/10/23 10:23 Ns IV 12/10/23 09:30 Infused .Q1H1M AXEL Infusion Sodium Chloride 1,000 mls @ 999 mls/hr 12/10/23 10:15 12/10/23 11:32 Ns IV 12/10/23 11:15 Infused .Q1H1M AXEL Infusion Piperacillin Sod/Tazobactam 50 mls @ 100 mls/hr 12/10/23 13:46 12/10/23 15:00 Sod 3.375 gm/ Sodium Chloride IV 12/10/23 14:15 Infused ONCE ONE Infusion Iohexol 100 ml 12/10/23 10:22 12/10/23 10:22 Iohexol 350 Mg/Ml 100 Ml Infus..Btl IV 12/10/23 10:23 85 ml ONCE ONE Administration Medical Decision Making Medical Decision Making MDM Narrative: Patient hypertensive, vitals otherwise WNL. He is nontoxic-appearing and in no acute distress. Posterior oropharynx WNL. Bilateral EACs and TMs WNL. Lungs are CTA bilaterally without wheezes, rhonchi or crackles. Abdomen is soft, nondistended, nontender to palpation. No rebound tenderness or guarding. Normoactive bowel sounds x4. No CVAT bilaterally. No rashes. Differential diagnosis includes viral syndrome, gastroenteritis, electrolyte abnormality, anemia, pneumonia. Low suspicion for pancreatitis, appendicitis, cholecystitis, acute abdomen, diverticulosis/diverticulitis, pleural effusion. Plan for viral serology, labs, chest x-ray, CT abd/pelvis. Differential Diagnosis Differential Diagnoses: The differential diagnosis associated with the presentation includes as above. Admission/Observation Consideration of admission/observation: Escalation of care including admission/observation considered Patient to be admitted to medicine with general surgery follow up in the morning. Consult Healthcare Provider Management of the patient was discussed with: Hospitalist (Dr. Grullon) and Dump Truck Operator (Dr. Morton (general surgery)) Lab Data MDM Lab Attestation statement: I reviewed the patient's lab results. As above 12/10/23 08:34 12/10/23 08:34 Labs: Lab Results 12/10/23 12/10/23 12/10/23 Range/Units 08:34 08:42 13:58 WBC 7.4 (4.8-10.8) X10*3/uL RBC 4.98 (4.60-5.80) X10*6/uL Hgb 15.2 (14.0-18.0) g/dl Hct 44.1 (42.0-52.0) % MCV 88.6 (80.0-98.0) fL MCH 30.5 (27.0-33.0) pg MCHC 34.5 (31.0-36.0) g/dl RDW 13.2 (11.0-16.0) % Plt Count 183 (160-400) X10*3/uL MPV 10.6 (9.4-12.4) fL Immature Gran % (Auto) 0.4 (0.0-0.4) % Neut % (Auto) 78.3 H (45-73) % Lymph % (Auto) 11.9 L (20-40) % [place] % (Auto) 9.0 (2-11) % Eos % (Auto) 0.0 (0-4) % Baso % (Auto) 0.4 (0-2) % Lymph # (Auto) 0.9 L (1.2-4.9) X10*3/uL [place] # (Auto) 0.7 (0.1-1.2) X10*3/uL Eos # (Auto) 0.0 (0.0-0.4) X10*3/uL Baso # (Auto) 0.0 (0.0-0.2) X10*3/uL Abs Immat Gran (auto) 0.03 (0.00-0.03) X10*3/uL Absolute Neuts (auto) 5.8 (2.0-8.3) x10*3/uL Absolute Nucleated RBC 0.000 (0.0-0.012) X10*3/uL Nucleated RBC % (auto) 0.0 (0.0-0.2) /100WBC Sodium 139 (135-145) mmol/L Potassium 3.9 (3.3-5.1) mmol/L Chloride 103 (96-108) mmol/L Carbon Dioxide 23 (22-29) mmol/L Anion Gap 17 (12-20) BUN 15 (9-16) mg/dL Creatinine 0.97 (0.5-1.4) mg/dL Estim Creat Clear Calc 87.0 Estimated GFR > 60 Random Glucose 94 (60-115) mg/dL Lactic Acid 0.9 (0.5-2.0) mmol/L Calcium 9.3 (8.4-10.2) mg/dL Magnesium 1.5 L (1.6-2.6) mg/dL Total Bilirubin 1.6 H (0.0-1.0) mg/dL AST 41 H (5-37) U/L ALT 48 H (0-40) U/L Alkaline Phosphatase 91 (39-117) U/L Total Protein 7.1 (6.5-8.0) g/dL Albumin 4.3 (3.5-5.0) g/dL Lipase 21 (8-78) U/L Urine Color Urine Appearance Urine pH (5.0-9.0) Ur Specific [place] (1.005-1.025) Urine Protein (Neg-Trace) mg/dL Urine Glucose (UA) (Negative) mg/dL Urine Ketones (Negative) mg/dL Urine Blood (Negative) Urine Nitrite (Negative) Ur Leukocyte Esterase (Negative) Influenza Type A (PCR) NEGATIVE (Negative) Influenza Type B (PCR) NEGATIVE (Negative) RSV RNA Qual (PCR) NEGATIVE (Negative) SARS-CoV-2 RNA (RT-PCR) NEGATIVE (Negative) 12/10/23 Range/Units 14:15 WBC (4.8-10.8) X10*3/uL RBC (4.60-5.80) X10*6/uL Hgb (14.0-18.0) g/dl Hct (42.0-52.0) % MCV (80.0-98.0) fL MCH (27.0-33.0) pg MCHC (31.0-36.0) g/dl RDW (11.0-16.0) % Plt Count (160-400) X10*3/uL MPV (9.4-12.4) fL Immature Gran % (Auto) (0.0-0.4) % Neut % (Auto) (45-73) % Lymph % (Auto) (20-40) % [place] % (Auto) (2-11) % Eos % (Auto) (0-4) % Baso % (Auto) (0-2) % Lymph # (Auto) (1.2-4.9) X10*3/uL [place] # (Auto) (0.1-1.2) X10*3/uL Eos # (Auto) (0.0-0.4) X10*3/uL Baso # (Auto) (0.0-0.2) X10*3/uL Abs Immat Gran (auto) (0.00-0.03) X10*3/uL Absolute Neuts (auto) (2.0-8.3) x10*3/uL Absolute Nucleated RBC (0.0-0.012) X10*3/uL Nucleated RBC % (auto) (0.0-0.2) /100WBC Sodium (135-145) mmol/L Potassium (3.3-5.1) mmol/L Chloride (96-108) mmol/L Carbon Dioxide (22-29) mmol/L Anion Gap (12-20) BUN (9-16) mg/dL Creatinine (0.5-1.4) mg/dL Estim Creat Clear Calc Estimated GFR Random Glucose (60-115) mg/dL Lactic Acid (0.5-2.0) mmol/L Calcium (8.4-10.2) mg/dL Magnesium (1.6-2.6) mg/dL Total Bilirubin (0.0-1.0) mg/dL AST (5-37) U/L ALT (0-40) U/L Alkaline Phosphatase (39-117) U/L Total Protein (6.5-8.0) g/dL Albumin (3.5-5.0) g/dL Lipase (8-78) U/L Urine Color Yellow Urine Appearance Clear Urine pH 6.5 (5.0-9.0) Ur Specific [place] >= 1.030 H (1.005-1.025) Urine Protein Negative (Neg-Trace) mg/dL Urine Glucose (UA) Negative (Negative) mg/dL Urine Ketones 15 (Negative) mg/dL Urine Blood Negative (Negative) Urine Nitrite Negative (Negative) Ur Leukocyte Esterase Negative (Negative) Influenza Type A (PCR) (Negative) Influenza Type B (PCR) (Negative) RSV RNA Qual (PCR) (Negative) SARS-CoV-2 RNA (RT-PCR) (Negative) Independent Interpretation I performed an independent interpretation of an: Plain X-Ray and CT Scan Interpretation: I have personally reviewed chest x-ray and agree with radiologist's interpretation. Vital personally reviewed CT scan abdomen/pelvis and agree with radiologist's interpretation. Radiology Impression Discussion of test interpretation with radiology: I have reviewed the radiologist's reading. Radiologist Impression: EXAMINATION: CT ABDOMEN AND PELVIS WITH CONTRAST CLINICAL INFORMATION: Right upper and lower quadrant abdominal pain, anorexia, vomiting COMPARISON: None available. TECHNIQUE: Multidetector volumetric images were obtained from the superior aspect of the liver through the pubic symphysis following administration 85 mL of Omnipaque 350 intravenous contrast. Sagittal and coronal reformatted images were obtained on the technologist's workstation. Oral contrast: No This CT examination was performed using dose optimization techniques as appropriate, variously including the following: *Automated exposure control *Adjustment of mA and/or kV according to patient size (this includes techniques or standardized protocols for targeted exams where dose is matched to indication/reason for exam; i.e. extremities or head) *Use of iterative reconstruction technique DLP: 445.48 mGy-cm FINDINGS: LUNG BASES: Bilateral lung bases are clear. LIVER: No focal lesion is seen in the liver. GALLBLADDER AND BILIARY TREE: Gallbladder appears unremarkable without calcified stones. Common bile duct is not dilated. SPLEEN: The spleen is normal in size without focal lesion. Tiny accessory spleen measuring 0.8 cm in diameter is seen medial to the anterior splenic body. PANCREAS: The pancreas appears unremarkable. ADRENAL GLANDS: Adrenal glands are normal in size without focal lesion bilaterally. KIDNEYS: Bilateral kidneys are normal in size without focal lesion. BOWELS: There is no abnormal dilatation of the large and small bowel loops. RETROPERITONEUM: No abnormally enlarged retroperitoneal lymph nodes, mass or hematoma could be seen. BLOOD VESSELS: Abdominal aorta is normal in size and smoothly patent. ABDOMINAL WALL: Small umbilical hernia containing mesenteric fat is seen. PERITONEUM: There was no ascites. There were no abdominal peritoneal inflammatory changes seen. No free peritoneal air was seen. No abnormally enlarged mesenteric lymph nodes are found. BONES: Mild posterior L5-S1 disc protrusion is seen. No fracture or dislocation. No focal bone lesion diagnostic of metastatic disease could be seen in the lumbar region. EXAMINATION: CT pelvis. TECHNIQUE: Multiple axial images were obtained from iliac crest to the inferior pubic rami following the administration of 85 mL of Omnipaque 350. Coronal and sagittal images were reconstructed from axial image data. Dose reduction technique: One or more of the following individual dose optimization techniques were used including: Automated exposure control, mA and/or kV were adjusted according to patient size or iterative reconstruction. FINDINGS: URINARY BLADDER: Urinary bladder fills normally with urine. BOWELS: There is no abnormal dilatation of the large and small bowel loops. At L4 level, a relatively high lying abnormally thickened enhancing appendix is seen projecting posterior and superior to the cecum, measuring up to 1.0 cm in transverse diameter. Multiple diverticula are seen in the sigmoid colon without inflammatory changes. GENITAL ORGANS: Seminal vesicles are unremarkable. Prostate gland is normal. LYMPH NODES: No abnormally enlarged iliac or inguinal lymph nodes are seen. PERITONEUM: No inflammatory changes, ascites or free peritoneal air are found in the pelvis. BONES: No fracture or dislocation. No focal bone lesion diagnostic of metastatic disease could be seen in the pelvis. CT/CT abdomen pelvis w IV con IMPRESSION: 1. Findings are compatible with high lying acute appendicitis without signs of perforation or abscess. 2. Sigmoid diverticulosis without evidence of diverticulitis. This critical result was discussed with Mary Sharma physician assistant director of security on 12/10/2023 at 1333 hours and it was ascertained that the content and urgency of this report was understood at the time of direct communication. - EXAMINATION: XR CHEST CLINICAL INFORMATION: Productive cough COMPARISON: Chest radiograph from 09/29/2023 TECHNIQUE: 2 views of the chest were obtained. FINDINGS: Chronic interstitial lung markings. No pneumothorax. Trachea is midline. Cardiac mediastinal silhouette is not enlarged. No large pleural effusion. Osseous structures are intact. Soft tissues are unremarkable. XR/XR chest 2V IMPRESSION: No acute cardiopulmonary process. External Record Review External record reviewed: Inpatient record Prescription Management I considered prescription management with: Pain Medication, Antibiotic and Other (Antiemetic) Social Determinants Patient?s care significantly limited by Social Determinants of Health including: Other Social Determinant of Health Critical Care Time Critical Care Time Critical Care Time: Yes Total Critical Care Time: 120 Attestation: Critical care time in the amount of 120 minutes has been provided to the patient in terms of direct patient care, frequent reevaluation, review and interpretation of medical data and results, consultation with general surgery and hospitalist, and management of potentially life-threatening conditions. This is all outside of any medical procedures. Discharge Plan Discharge Clinical Impression: Gastroenteritis Acute appendicitis Qualifiers: Appendicitis gangrene presence: without gangrene Appendicitis perforation presence: without perforation Appendicitis abscess presence: without abscess Patient Disposition: Admitted As Inpatient
[2023-12-10] MEDS: 0.9 % Sodium Chloride 1,000 ML 999 ML IV ×2 (08:36→10:27)
[2023-12-10 08:43] LABS: MANUAL DIFF FLAG NO
[2023-12-10 08:53] LABS: Basophils Percent Auto 0.4 % (0-2); Hematocrit 44.1 % (42.0-52.0); Hemoglobin 15.2 g/dl (14.0-18.0); Imm Gran Abs Auto 0.03 X10*3/uL (0.00-0.03); Imm Gran Pct Auto 0.4 % (0.0-0.4); Lymphocytes Absolute Auto 0.9 X10*3/uL (1.2-4.9); Lymphocytes Percent Auto 11.9 % (20-40); Mean Corpuscular HGB Conc 34.5 g/dl (31.0-36.0); Mean Corpuscular Hemoglobin 30.5 pg (27.0-33.0); Mean Corpuscular Volume 88.6 fL (80.0-98.0); Mean Platelet Volume 10.6 fL (9.4-12.4); Monocytes Absolute Auto 0.7 X10*3/uL (0.1-1.2); Neutrophils Absolute Auto 5.8 x10*3/uL (2.0-8.3); Neutrophils Percent Auto 78.3 % (45-73); Platelet Count 183 X10*3/uL (160-400); Red Blood Count 4.98 X10*6/uL (4.60-5.80); Red Cell Distribution Width 13.2 % (11.0-16.0); White Blood Count 7.4 X10*3/uL (4.8-10.8)
[2023-12-10 08:59] LABS: Alanine Aminotransferase 48 U/L (0-40); Albumin Level 4.3 g/dL (3.5-5.0); Alkaline Phosphatase 91 U/L (39-117); Anion Gap 17 (12-20); Aspartate Amino Transferase 41 U/L (5-37); Bilirubin Total 1.6 mg/dL (0.0-1.0); Blood Urea Nitrogen 15 mg/dL (9-16); Calcium 9.3 mg/dL (8.4-10.2); Carbon Dioxide 23 mmol/L (22-29); Chloride 103 mmol/L (96-108); Estimated Glomerular Filt Rate > 60; Glucose Random 94 mg/dL (60-115); Lipase 21 U/L (8-78); Magnesium 1.5 mg/dL (1.6-2.6); Potassium 3.9 mmol/L (3.3-5.1); Sodium 139 mmol/L (135-145); Total Protein 7.1 g/dL (6.5-8.0)
[2023-12-10 09:54] LABS: Influenza A PCR NEGATIVE (Negative); Influenza B PCR NEGATIVE (Negative); Resp Syncy Virus RNA Qual PCR NEGATIVE (Negative); SARS COV2 PCR INHOUSE NEGATIVE (Negative)
[2023-12-10] MEDS: iohexoL 350 MG/ML 100 ML INFUS..BTL IV (10:22)
--- NOTE | 2023-12-10 10:23 | PC.NURSE ---
Pt to CT Scan.
--- NOTE | 2023-12-10 10:31 | PC.NURSE ---
Pt returned from CT Scan, denies need to urinate at this time. Pt made aware of need for urine sample. 2nd liter IVF hung per order. Pt given warm blankets per request. Made aware of plan - awaiting CT results and urine sample when pt is able to provide.
--- NOTE | 2023-12-10 14:00 | P.CONGS_ITS ---
History of Present Illness Consult details Consult date: 12/10/23 Narrative: 53-year-old male here in the ER because of what he describes as having low energy . He says that this started about 4 days ago. He felt like he had some vague sense of not being well. He did not have abdominal pain. Yesterday morning, he had episodes of vomiting and diarrhea. He says that this had resolved since then. He has had no vomiting or diarrhea since that time. He continued to have this sense of not being well so he came to the emergency room this morning. He denies any fever. He describes having some sensation of being and cold. He continues to deny any abdominal pain. He had a CAT scan done showing findings may suggest appendicitis so I was consulted. Review of Systems 2 Constitutional: Constitutional: Denies chills and Denies fever(s) Cardiovascular: Cardiovascular: Denies chest pain, Denies dyspnea and Denies dyspnea on exertion Respiratory: Respiratory: Denies cough, Denies dyspnea and Denies dyspnea on exertion Gastrointestinal: Gastrointestinal: Denies hematochezia and Denies change in bowel habits Genitourinary: Genitourinary: Denies hematuria and Denies difficulty urinating Musculoskeletal: Musculoskeletal: Denies back pain and Denies limited range of motion Neurologic: Denies focal weakness and Denies convulsions Psychiatric: Psychiatric: Denies depression and Denies mood swings PMFSH Past Medical History Medical History Feeling unwell Ex-smoker Social History Social History Alcohol intake: current Alcohol type: beer Comment: 2 24oz beers, several times per week Patient Tobacco Use Status: Former Tobacco user Quit Date: 1998 [facility] Allergies Allergy/AdvReac Type Severity Reaction Status Date / Time No Known Allergies Allergy Verified 12/10/23 08:08 Active Medications: Current Medications Piperacillin Sod/Tazobactam (Sod 3.375 gm/ Sodium Chloride) 50 mls @ 100 mls/hr IV ONCE ONE Stop: 12/10/23 14:15 Home Medications Medication Instructions Recorded Confirmed Last Taken Type esomeprazole magnesium 20 mg 20 mg PO DAILY PRN Heartburn 12/10/23 12/10/23 12/08/23 History capsule,delayed release (Nexium) naproxen sodium 220 mg tablet 220 mg PO BID PRN Pain 12/10/23 12/10/2312/08/24 History (Aleve) Physical Exam 2 Vital Signs: Vital Signs: Last Vital Signs Temp 98.9 F 12/10/23 13:53 Pulse 83 12/10/23 13:53 Resp 16 12/10/23 13:53 BP 158/94 H 12/10/23 13:53 Pulse Ox 99 12/10/23 13:53 O2 Del Method Room Air 12/10/23 13:53 BMI result Body Mass Index 23.6 Const: General: comfortable and no acute distress O rientation/consciousness: patient oriented x3 Neck: Neck: Yes no lymphadenopathy Resp: Auscultation: clear to auscultation bilaterally Cardio: Rhythm: regular rhythm GI: Other: No tenderness on the right side or right lower quadrant or right flank even with deep palpation Palpation (GI): Soft to palpation, nontender and no guarding Neuro: General: patient oriented x3 Results Labs 12/11/23 05:32 12/11/23 05:32 Labs: Abnormal lab results 12/10/23 Range/Units 08:34 Neut % (Auto) 78.3 H (45-73) % Lymph % (Auto) 11.9 L (20-40) % Lymph # (Auto) 0.9 L (1.2-4.9) X10*3/uL Magnesium 1.5 L (1.6-2.6) mg/dL Total Bilirubin 1.6 H (0.0-1.0) mg/dL AST 41 H (5-37) U/L ALT 48 H (0-40) U/L Short CBC 12/10/23 Range/Units 08:34 WBC 7.4 (4.8-10.8) X10*3/uL Hgb 15.2 (14.0-18.0) g/dl Hct 44.1 (42.0-52.0) % Plt Count 183 (160-400) X10*3/uL BMP 12/10/23 08:34 Sodium 139 Potassium 3.9 Chloride 103 Carbon Dioxide 23 BUN 15 Creatinine 0.97 Calcium 9.3 Liver Function 12/10/23 Range/Units 08:34 Total Bilirubin 1.6 H (0.0-1.0) mg/dL AST 41 H (5-37) U/L ALT 48 H (0-40) U/L Alkaline Phosphatase 91 (39-117) U/L Albumin 4.3 (3.5-5.0) g/dL All other labs normal. Imaging Abdomen CT scan report/results: report reviewed and image reviewed CT scan - pelvis: report reviewed and image reviewed Assessment and Plan (1) Feeling unwell: Status: Acute He is in the ER because of what he describes as feeling ?unwell? for the past 4 days. He describes she is having low energy. He had some vomiting yesterday morning along with diarrhea but this has resolved He had a CT scan because of his vague complaints. I have reviewed this. The official report states that may have appendicitis. However, clinically, he does not have any pain nor tenderness by history or examination. There is no appendicolith seen. Even with deep palpation of the right flank and right lower quadrant, he does not have any discomfort. Furthermore, he has had no nausea vomiting or diarrhea since yesterday. He does not have leukocytosis. Clinically he does not have acute appendicitis. He may be dehydrated or may have a a viral infection. At this time, he does not seem to have any surgical issues. He looks well as well. No leukocytosis He can be admitted for observation and IV hydration. I can re-examine him in the morning. I have clear liquids and this can be advanced as tolerated. Procedures Date of Service Date of Service: 12/11/23
--- NOTE | 2023-12-10 14:03 | PC.NURSE ---
Surgery at bedside to evaluate pt.
[2023-12-10] MEDS: Piperacillin Sodium/Tazobactam 3.375 GM in 0.9 % Sodium Chloride 50 ML IV (14:13)
[2023-12-10 14:14] LABS: Lactic Acid 0.9 mmol/L (0.5-2.0)
--- NOTE | 2023-12-10 14:19 | PC.NURSE ---
Admitting MD at bedside to evaluate pt. Urine sample obtained/sent to lab.
[2023-12-10 14:27] LABS: Appearance Urine Clear; Color Urine Yellow; Glucose Urine UA Negative (Negative); Leukocyte Esterase Urine Negative (Negative); Nitrite Urine Negative (Negative); PH 6.5 (5.0-9.0); Specific Gravity - Urine >= 1.030 (1.005-1.025); Urine Blood Negative (Negative); Urine Ketones 15 mg/dL (Negative); Urine Protein Negative (Neg-Trace)
--- NOTE | 2023-12-10 14:29 | PM.IMHP ---
History of Present Illness Date of Service: 12/10/23 Chief Complaint: n/v, weakness 53M PMH mild intermittent asthma presented with 3 days of feeling unwell . Patient reports symptoms started with diarrhea and nausea. Those lasted only 1 day. Has since just had decreased appetite and weakness. Denies sick contacts, fever, abdominal pain. Decided to be evaluated in the ER because symptoms were not subsiding. In ED CT abdomen was suspicious for acute appendicitis. However, patient was evaluated by General surgery and due to lack of abdominal pain, lack of abdominal tenderness, normal white blood cell count acute appendicitis is felt to be unlikely. Review of Systems Review of Systems: Yes all other systems are reviewed and are negative [facility] Medical History Feeling unwell Ex-smoker Social History Alcohol intake: current Alcohol type: beer Comment: 2 24oz beers, several times per week Smoked in Last 30 Days: No Advance Directives: No Meds Allergies Allergy/AdvReac Type Severity Reaction Status Date / Time No Known Allergies Allergy Verified 12/10/23 08:08 Active Medications: Current Medications Enoxaparin Sodium (Enoxaparin Sodium 40 Mg/0.4 Ml Syringe) 40 mg SUBCUT Q24H [facility] Sodium Chloride (Ns) 1,000 mls @ 80 mls/hr IVCONT .[id number] [facility] Ondansetron HCl (Ondansetron Hcl 4 Mg/2 Ml Vial) 4 mg IVPUSH Q8H PRN PRN Reason: Nausea and Vomiting Pantoprazole Sodium (Pantoprazole Sodium 40 Mg/10 Ml Vial) 40 mg IVPUSH DAILY@0630 [facility] Sodium Chloride (0.9 % Sodium Chloride Flush 3 Ml Syringe) 3 ml IVFLUSH QSHIFT [facility] Physical Exam Vital Signs and Narrative: Vital Signs: Last Vital Signs Temp 98.9 F 12/10/23 13:53 Pulse 83 12/10/23 13:53 Resp 16 12/10/23 13:53 BP 158/94 H 12/10/23 13:53 Pulse Ox 99 12/10/23 13:53 O2 Del Method Room Air 12/10/23 13:53 BMI result Body Mass Index 23.6 General: AO X 3, no acute distress Resp: CTA bilateral, no accessory muscles used CVS: S1,S2,RRR GI: soft, non tender - despite deep palpation on RLQ, no rebound, non distended Neuro: motor grossly intact, alert Psych: appropriate affect, appropriate insight Results Labs 12/10/23 08:34 12/10/23 08:34 Labs: Laboratory Results - last 24 hr 12/10/23 12/10/23 12/10/23 08:34 08:42 13:58 MCV 88.6 MCH 30.5 MCHC 34.5 RDW 13.2 Plt Count 183 MPV 10.6 Immature Gran % (Auto) 0.4 Neut % (Auto) 78.3 H Lymph % (Auto) 11.9 L [place] % (Auto) 9.0 Eos % (Auto) 0.0 Baso % (Auto) 0.4 Lymph # (Auto) 0.9 L [place] # (Auto) 0.7 Eos # (Auto) 0.0 Baso # (Auto) 0.0 Abs Immat Gran (auto) 0.03 Absolute Neuts (auto) 5.8 Absolute Nucleated RBC 0.000 Nucleated RBC % (auto) 0.0 Anion Gap 17 Estim Creat Clear Calc 87.0 Estimated GFR > 60 Random Glucose 94 Lactic Acid 0.9 Calcium 9.3 Magnesium 1.5 L Total Bilirubin 1.6 H AST 41 H ALT 48 H Alkaline Phosphatase 91 Total Protein 7.1 Albumin 4.3 Lipase 21 Influenza Type A (PCR) NEGATIVE Influenza Type B (PCR) NEGATIVE RSV RNA Qual (PCR) NEGATIVE SARS-CoV-2 RNA (RT-PCR) NEGATIVE Imaging Radiologist's Impressions: Impressions Chest X-Ray 12/10/23 09:19 IMPRESSION: No acute cardiopulmonary process. Abdomen/Pelvis CT 12/10/23 10:40 IMPRESSION: 1. Findings are compatible with high lying acute appendicitis without signs of perforation or abscess. 2. Sigmoid diverticulosis without evidence of diverticulitis. This critical result was discussed with Mary Sharma physician regulatory assistant on 12/10/2023 at 1333 hours and it was ascertained that the content and urgency of this report was understood at the time of direct communication. Assessment and Plan (1) Gastroenteritis: Status: Acute Plan 53M PMH mild intermittent asthma presented with 3 days of feeling unwell acute gastroenteritis low supsicion for appendicitis gen surgery following ivf, clears, antiemetics, ppi hold off on abx excess etoh use monitor for withdrawal mild intermittent asthma stable dvt prophylaxis - lovenox full code Quality Stroke Does the patient have a stroke diagnosis?: No VTE Prior VTE?: No VTE Risk Level:: Medical - moderate - high VTE Device Contraindication: Treatment Not Indicated VTE Drug Contraindication: N/A - Med Ordered
[2023-12-10] MEDS: 0.9 % Sodium Chloride 1,000 ML 80 ML IVCONT (14:45)
[2023-12-10] MEDS: Pantoprazole Sodium 40 MG/10 ML VIAL IVPUSH (14:45)
--- NOTE | 2023-12-10 14:59 | PHA.MEDREC ---
Pharmacy Consult ? Medication Reconciliation Pharmacy has completed the medication reconciliation.Confirmed medications with patient.
[2023-12-11] MEDS: 0.9 % Sodium Chloride 1,000 ML 80 ML IVCONT ×2 (03:15→15:44)
[2023-12-11 04:00] VITALS: BP 133/85; PULSE 60; RESP 16; TEMP 36.1; O2SAT 98
[2023-12-11] MEDS: Pantoprazole Sodium 40 MG/10 ML VIAL IVPUSH (05:40)
[2023-12-11 06:08] LABS: Hematocrit 42.2 % (42.0-52.0); Hemoglobin 14.4 g/dl (14.0-18.0); Mean Corpuscular HGB Conc 34.1 g/dl (31.0-36.0); Mean Corpuscular Hemoglobin 30.4 pg (27.0-33.0); Mean Platelet Volume 10.7 fL (9.4-12.4); Platelet Count 177 X10*3/uL (160-400); Red Blood Count 4.74 X10*6/uL (4.60-5.80); Red Cell Distribution Width 13.1 % (11.0-16.0); White Blood Count 6.3 X10*3/uL (4.8-10.8)
[2023-12-11 06:13] LABS: INTERNATIONAL NORM RATIO 0.9 (0.9-1.1); Prothrombin Time 11.5 SEC (11.1-13.3)
[2023-12-11 06:30] LABS: Alanine Aminotransferase 34 U/L (0-40); Albumin Level 3.7 g/dL (3.5-5.0); Alkaline Phosphatase 73 U/L (39-117); Anion Gap 10 (12-20); Aspartate Amino Transferase 28 U/L (5-37); Bilirubin Direct 0.4 mg/dL (0.0-0.5); Bilirubin Total 1.3 mg/dL (0.0-1.0); Blood Urea Nitrogen 8 mg/dL (9-16); C Reactive Protein < 0.04 mg/dL (< or = 0.50); Calcium 8.3 mg/dL (8.4-10.2); Carbon Dioxide 26 mmol/L (22-29); Chloride 107 mmol/L (96-108); Creatinine Clr Calc Pharmacy 104.2; Estimated Glomerular Filt Rate > 60; Glucose Fasting 94 mg/dL (60-99); Potassium 3.8 mmol/L (3.3-5.1); Sodium 139 mmol/L (135-145)
[2023-12-11 06:50] VITALS: BP 137/88; PULSE 59; RESP 16; TEMP 36.6; O2SAT 98
--- NOTE | 2023-12-11 09:28 | PM.PNGS ---
Subjective Subjective Date of Service: 12/11/23 Interval history: Feels much better Continues to deny any abdominal pain No nausea or vomiting 1 episode of stools this morning No fever Physical Exam Vital Signs: Vital Signs: Last Vital Signs Temp 98 F 12/11/23 06:50 Pulse 59 12/11/23 06:50 Resp 16 12/11/23 06:50 BP 137/88 12/11/23 06:50 Pulse Ox 98 12/11/23 06:50 O2 Del Method Room Air 12/11/23 06:50 BMI result Body Mass Index 24.0 Const: Other: Looks well General: comfortable and no acute distress Orientation/consciousness: patient oriented x3 Neck: Neck: Yes no lymphadenopathy Resp: Auscultation: clear to auscultation bilaterally Cardio: Rhythm: regular rhythm GI: Other: No tenderness even with deep palpation of the right side Palpation (GI): Soft to palpation, nontender and no guarding Neuro: General: patient oriented x3 Objective Data Active Medications Enoxaparin Sodium (Enoxaparin Sodium 40 Mg/0.4 Ml Syringe) 40 mg SUBCUT Q24H [facility] Last Admin: 12/10/23 14:41 Dose: Not Given Documented By: BERNICE Non-Admin Reason: Patient Refused Sodium Chloride (Ns) 1,000 mls @ 80 mls/hr IVCONT .[id number] [facility] Last Admin: 12/11/23 03:15 Dose: 80 mls/hr Documented By: NATHALY Ondansetron HCl (Ondansetron Hcl 4 Mg/2 Ml Vial) 4 mg IVPUSH Q8H PRN PRN Reason: Nausea and Vomiting Pantoprazole Sodium (Pantoprazole Sodium 40 Mg/10 Ml Vial) 40 mg IVPUSH DAILY@0630 [facility] Last Admin: 12/11/23 05:40 Dose: 40 mg Documented By: NATHALY Comments: downtime Sodium Chloride (0.9 % Sodium Chloride Flush 3 Ml Syringe) 3 ml IVFLUSH QSHIFT [facility] Last Admin: 12/11/23 07:59 Dose: Not Given Documented By: JESSICA Non-Admin Reason: IV Running Labs 12/11/23 05:32 12/11/23 05:32 Labs: Laboratory Results - last 24 hr 12/10/23 12/10/23 12/10/23 08:42 13:58 14:15 MCV MCH MCHC RDW Plt Count MPV Absolute Nucleated RBC Nucleated RBC % (auto) PT INR Anion Gap Estim Creat Clear Calc Estimated GFR Fasting Glucose Lactic Acid 0.9 Calcium Total Bilirubin Direct Bilirubin AST ALT Alkaline Phosphatase C-Reactive Protein Total Protein Albumin Urine Color Yellow Urine Appearance Clear Urine pH 6.5 Ur Specific [place] >= 1.030 H Urine Protein Negative Urine Glucose (UA) Negative Urine Ketones 15 Urine Blood Negative Urine Nitrite Negative Ur Leukocyte Esterase Negative Influenza Type A (PCR) NEGATIVE Influenza Type B (PCR) NEGATIVE RSV RNA Qual (PCR) NEGATIVE SARS-CoV-2 RNA (RT-PCR) NEGATIVE 12/11/23 05:32 MCV 89.0 MCH 30.4 MCHC 34.1 RDW 13.1 Plt Count 177 MPV 10.7 Absolute Nucleated RBC 0.000 Nucleated RBC % (auto) 0.0 PT 11.5 INR 0.9 Anion Gap 10 L Estim Creat Clear Calc 104.2 Estimated GFR > 60 Fasting Glucose 94 Lactic Acid Calcium 8.3 L D Total Bilirubin 1.3 H Direct Bilirubin 0.4 AST 28 ALT 34 Alkaline Phosphatase 73 C-Reactive Protein < 0.04 Total Protein 6.0 L Albumin 3.7 Urine Color Urine Appearance Urine pH Ur Specific [place] Urine Protein Urine Glucose (UA) Urine Ketones Urine Blood Urine Nitrite Ur Leukocyte Esterase Influenza Type A (PCR) Influenza Type B (PCR) RSV RNA Qual (PCR) SARS-CoV-2 RNA (RT-PCR) Procedures Date of Service Date of Service: 12/11/23 Progress Note: A&P Assessment and plan (1) Gastroenteritis: Status: Acute Assessment and Plan: Clinically looks well No abdominal pain, no tenderness even with deep palpation No leukocytosis Despite CT scan report, unlikely to have had acute appendicitis No appendicolith Would not proceed with appendectomy at this time Overall clinical picture more suggestive of gastroenteritis Advance diet He can be discharged today Patient aware of plan and understands - he says he is comfortable with this Time Spent With Patient Time: Total time managing care of this patient today ____ minutes. Quality Stroke Does the patient have a stroke diagnosis?: No VTE Prior VTE?: No VTE Risk Level:: Medical - moderate - high VTE Device Contraindication: Treatment Not Indicated VTE Drug Contraindication: N/A - Med Ordered
--- NOTE | 2023-12-11 09:50 | MHC.CM.PN ---
[facility] DELIVERED. PATIENT IS FROM HOME W/ . FUNCTIONALLY INDEPENDENT. DENIES USE OF DME OR SERVICES. PCP ROME JOHNSON MD PATIENT COMPLETED HCP NAMING AGENTS 1: EVELIN AND 2: DAUGHTER GRISELDA [phone] DP: GOAL IS HOME SELF CARE. DO NOT ANTICIPATE THE NEED FOR SERVICES. PATIENT'S VAN IS IN THE PARKING LOT, WILL SELF TRANSPORT. CM WILL CONTINUE TO FOLLOW FOR DC NEEDS.
[2023-12-11 11:29] VITALS: BP 147/90; PULSE 70; RESP 16; TEMP 36.6; O2SAT 99
--- NOTE | 2023-12-11 13:09 | HO.PM.IMPN ---
Subjective Subjective Date of Service: 12/11/23 Interval History: no pain, some small volume diarrhea Physical Exam Vital Signs: Vital Signs: Last Vital Signs Temp 98 F 12/11/23 11:29 Pulse 70 12/11/23 11:29 Resp 16 12/11/23 11:29 BP 147/90 H 12/11/23 11:29 Pulse Ox 99 12/11/23 11:29 O2 Del Method Room Air 12/11/23 11:29 BMI result Body Mass Index 24.0 General: AO X 3, no acute distress Resp: CTA bilateral, no accessory muscles used CVS: S1,S2,RRR GI: soft, non tender, non distended Neuro: motor grossly intact, alert Psych: appropriate affect, appropriate insight Objective Data Active Medications Enoxaparin Sodium (Enoxaparin Sodium 40 Mg/0.4 Ml Syringe) 40 mg SUBCUT Q24H [facility] Last Admin: 12/10/23 14:41 Dose: Not Given Documented By: BERNICE Non-Admin Reason: Patient Refused Sodium Chloride (Ns) 1,000 mls @ 80 mls/hr IVCONT .[id number] [facility] Last Admin: 12/11/23 03:15 Dose: 80 mls/hr Documented By: NATHALY Ondansetron HCl (Ondansetron Hcl 4 Mg/2 Ml Vial) 4 mg IVPUSH Q8H PRN PRN Reason: Nausea and Vomiting Pantoprazole Sodium (Pantoprazole Sodium 40 Mg/10 Ml Vial) 40 mg IVPUSH DAILY@0630 [facility] Last Admin: 12/11/23 05:40 Dose: 40 mg Documented By: NATHALY Comments: downtime Sodium Chloride (0.9 % Sodium Chloride Flush 3 Ml Syringe) 3 ml IVFLUSH QSHIFT [facility] Last Admin: 12/11/23 07:59 Dose: Not Given Documented By: JESSICA Non-Admin Reason: IV Running Labs 12/11/23 05:32 12/11/23 05:32 Labs: Laboratory Results - last 24 hr 12/10/23 12/10/23 12/11/23 13:58 14:15 05:32 MCV 89.0 MCH 30.4 MCHC 34.1 RDW 13.1 Plt Count 177 MPV 10.7 Absolute Nucleated RBC 0.000 Nucleated RBC % (auto) 0.0 PT 11.5 INR 0.9 Anion Gap 10 L Estim Creat Clear Calc 104.2 Estimated GFR > 60 Fasting Glucose 94 Lactic Acid 0.9 Calcium 8.3 L D Total Bilirubin 1.3 H Direct Bilirubin 0.4 AST 28 ALT 34 Alkaline Phosphatase 73 C-Reactive Protein < 0.04 Total Protein 6.0 L Albumin 3.7 Urine Color Yellow Urine Appearance Clear Urine pH 6.5 Ur Specific [place] >= 1.030 H Urine Protein Negative Urine Glucose (UA) Negative Urine Ketones 15 Urine Blood Negative Urine Nitrite Negative Ur Leukocyte Esterase Negative Assessment and Plan (1) Gastroenteritis: Status: Acute Plan 53M PMH mild intermittent asthma presented with 3 days of feeling unwell acute gastroenteritis low suspicion for appendicitis gen surgery appreciated advanced to solids excess etoh use monitor for withdrawal mild intermittent asthma stable dvt prophylaxis - lovenox full code reason for continued hospitalization:awaiting tolerance of solids Quality Stroke Does the patient have a stroke diagnosis?: No VTE Prior VTE?: No VTE Risk Level:: Medical - moderate - high VTE Device Contraindication: Treatment Not Indicated VTE Drug Contraindication: N/A - Med Ordered
[2023-12-11 15:29] VITALS: BP 125/80; PULSE 73; RESP 16; TEMP 37.2; O2SAT 98
[2023-12-11 20:00] VITALS: BP 130/75; PULSE 66; RESP 16; TEMP 36.4; O2SAT 97
[2023-12-12] VITALS: BP 154/90; PULSE 60; RESP 16; TEMP 36.6; O2SAT 98
[2023-12-12 04:00] VITALS: BP 145/85; PULSE 54; RESP 18; TEMP 36.4; O2SAT 98
[2023-12-12] MEDS: 0.9 % Sodium Chloride 1,000 ML 80 ML IVCONT (05:13)
[2023-12-12] MEDS: Pantoprazole Sodium 40 MG/10 ML VIAL IVPUSH (05:13)
--- NOTE | 2023-12-12 07:53 | P.DS_ITS ---
DS: Providers Provider Date of Service: 12/12/23 Date of admission: 12/10/23 14:21 Primary care physician: Evan Rosa MD Consults: 12/11/23 08:33 Consult to General Surgery Routine Consulting Provider: [facility] General Surgeons Reason for consultation: ct reporting appendicitis, DS: Diagnosis Discharge Diagnosis (1) Gastroenteritis: Status: Acute DS: Summary Hospital Course Hospital Course: from initial hpi: 53M PMH mild intermittent asthma presented with 3 days of feeling unwell . Patient reports symptoms started with diarrhea and nausea. Those lasted only 1 day. Has since just had decreased appetite and weakness. Denies sick contacts, fever, abdominal pain. Decided to be evaluated in the ER because symptoms were not subsiding. In ED CT abdomen was suspicious for acute appendicitis. However, patient was evaluated by General surgery and due to lack of abdominal pain, lack of abdominal tenderness, normal white blood cell count acute appendicitis is felt to be unlikely. hospital course: Patient was admitted for acute gastroenteritis. Initial CT finding of acute appendicitis was felt to be unlikely due to patient's lack of tenderness or abdominal pain and no systemic signs or symptoms. He was advanced to solid diet and tolerated well. His mild intermittent asthma remained stable. Patient will be discharged home. Time Attestation Discharge Coordination Time (in mins): 35 Quality: Safe Use of Opioids Does Pt have an Active Cancer Diagnosis on the Problem List?: No Quality: Stroke Does the patient have a stroke diagnosis?: No Physical Exam Vital Signs: Vital Signs: Last Vital Signs Temp 97.6 F 12/12/23 04:00 Pulse 54 12/12/23 04:00 Resp 18 12/12/23 04:00 BP 145/85 H 12/12/23 04:00 Pulse Ox 98 12/12/23 04:00 O2 Del Method Room Air 12/12/23 04:00 BMI result Body Mass Index 24.0 General: AO X 3, no acute distress Resp: CTA bilateral, no accessory muscles used CVS: S1,S2,RRR GI: soft, non tender, non distended Neuro: motor grossly intact, alert Psych: appropriate affect, appropriate insight DS: Data Data Completed and Pending Labs on day of discharge: Preliminary micro results at discharge 12/10/23 14:04 Blood Culture - Preliminary Blood - Venous No growth after 24 hours. 12/10/23 13:58 Blood Culture - Preliminary Blood - Venous No growth after 24 hours. Discharge Plan Discharge Anticipated Discharge Date/Time: 12/12/23 07:51 Patient Disposition: Home, Self-Care Discharge Diagnosis: gastroenteritis Referrals: Evan Rosa MD [Primary Care Provider] - 1 Week Discharge Medications: Continued albuterol sulfate [ProAir HFA] 90 mcg/actuation HFA aerosol inhaler 2 puff inhalation Q4-6H PRN (Reason: shortness of breath or wheezing) Qty: 6.7 0RF naproxen sodium [Aleve] 220 mg Tablet 220 mg PO BID PRN (Reason: Pain) esomeprazole magnesium [Nexium] 20 mg Capsule,Delayed Release(Dr/Ec) 20 mg PO DAILY PRN (Reason: Heartburn) Discharge Orders: Discharge Order (Routine); Ordered 12/12/23 Ordered By: Catrachito Grullon Diet: Advance to usual diet Activity on Discharge: As tolerated Stand Alone Forms: Patient Portal Discharge page Care Plan Goals: recovery Health Concerns: gastroenteritis Plan of Treatment: symptomatic management, expect some mild diarrhea, but if significant worsening or abdominal pain or fevers should return to ED Assessment: see above
[2023-12-12 08:00] VITALS: BP 150/89; PULSE 58; RESP 16; TEMP 36.6; O2SAT 98
--- NOTE | 2023-12-12 08:36 | MHC.CM.PN ---
PT WILL DC HOME TODAY WITH NO SERVICES VIA PRIVATE TRANSPORT
== END 2023-12-12 10:30 | disposition home or self-care (01) ==
LOC: HO.ED 14:14 → HO.EDOVER 14:25 → HO.S3 19:31
PROVIDERS: Physician Assistant Medical; Admitting Provider Internal Medicine; Emergency Provider Emergency Medicine Emergency Medical Services; PCP Hospitalist; Visit Provider Internal Medicine
DX: K52.9 Noninfective gastroenteritis and colitis, unspecified (principal); R11.2 Nausea with vomiting, unspecified; R05.9 Cough, unspecified; J45.20 Mild intermittent asthma, uncomplicated; F10.90 Alcohol use, unspecified, uncomplicated; R63.0 Anorexia; Z68.23 Body mass index [BMI] 23.0-23.9, adult; Z11.52 Encounter for screening for COVID-19; Z20.828 Contact with and (suspected) exposure to other viral communicable diseases; Z79.899 Other long term (current) drug therapy
CPT/HCPCS: 0241U; 36415; 71046; 74177; 80048; 80053; 80076; 81003; 83605; 83690; 83735; 85025; 85027; 85610; 86140; 87040; 96361; 96365; 96375; 96376; 99221; 99285; C9113; J2543; Q9967

== ENCOUNTER → 2023-12-10 14:21 | Outpatient (BNV) | payer BC, SELFPAY | PROVIDERS: Admitting Provider Internal Medicine; Emergency Provider Emergency Medicine Emergency Medical Services; PCP Hospitalist; Visit Provider Surgery | DX: R68.89 Other general symptoms and signs (principal); K52.9 Noninfective gastroenteritis and colitis, unspecified | CPT/HCPCS: 99222; 99232 ==

== ENCOUNTER → 2023-12-10 14:21 | Outpatient (BNV) | payer BC, SELFPAY | PROVIDERS: Admitting Provider Internal Medicine; Emergency Provider Emergency Medicine Emergency Medical Services; PCP Hospitalist; Visit Provider Internal Medicine | DX: K52.9 Noninfective gastroenteritis and colitis, unspecified (principal) | CPT/HCPCS: 99222; 99232; 99239 ==

== ENCOUNTER 2023-12-31 06:42 | Emergency (ER) | payer BC, SELFPAY ==
--- NOTE | ~2023-12-31 | CT_ITS ---
EXAMINATION: CT ABDOMEN AND PELVIS WITH CONTRAST CLINICAL INFORMATION: Diarrhea, history of appendicitis COMPARISON: CT abdomen pelvis on 12/09/2013 TECHNIQUE: Multidetector volumetric images were obtained from the superior aspect of the liver through the pubic symphysis following administration 85 mL of Omnipaque 350 intravenous contrast. Sagittal and coronal reformatted images were obtained on the technologist's workstation. Oral contrast: No This CT examination was performed using dose optimization techniques as appropriate, variously including the following: *Automated exposure control *Adjustment of mA and/or kV according to patient size (this includes techniques or standardized protocols for targeted exams where dose is matched to indication/reason for exam; i.e. extremities or head) *Use of iterative reconstruction technique DLP: 450 mGy-cm FINDINGS: LUNG BASES: The visualized lung bases are unremarkable. LIVER, GALLBLADDER, AND BILIARY TREE: The liver is normal in size, shape, and attenuation. No focal hepatic lesion or biliary ductal dilatation is present. The gallbladder is unremarkable with no evidence of radiopaque gallstones, gallbladder wall thickening, or obvious pericholecystic inflammatory changes. PANCREAS: Unremarkable. SPLEEN: Unremarkable. ADRENAL GLANDS: Unremarkable. KIDNEYS AND URETERS: The kidneys are normal in size, shape, and attenuation. No hydronephrosis, hydroureter, or calculi seen. No perinephric stranding. BLADDER: Unremarkable. GASTROINTESTINAL TRACT: The small and large bowel are unremarkable. Prior appendectomy. No fluid collections in the right lower quadrant. ABDOMINAL WALL: Small fat-containing umbilical hernia. LYMPH NODES: Normal. VASCULAR: Unremarkable. PELVIC VISCERA: Unremarkable. OSSEOUS STRUCTURES: Unremarkable. CT/CT abdomen pelvis w IV con IMPRESSION: 1. No acute abdominal abnormality. 2. Prior appendectomy. No fluid collections in the right lower quadrant. Fleischner guidelines were followed.
[2023-12-31 07:05] VITALS: BP 149/87; PULSE 80; RESP 18; TEMP 37.2; O2SAT 97; BMI 25.8
[2023-12-31 07:19] LABS: MANUAL DIFF FLAG NO
[2023-12-31 07:33] LABS: Basophils Percent Auto 0.4 % (0-2); Eosinophils Percent Auto 0.4 % (0-4); Hematocrit 43.5 % (42.0-52.0); Hemoglobin 15.2 g/dl (14.0-18.0); Imm Gran Abs Auto 0.02 X10*3/uL (0.00-0.03); Imm Gran Pct Auto 0.4 % (0.0-0.4); Lymphocytes Absolute Auto 1.4 X10*3/uL (1.2-4.9); Lymphocytes Percent Auto 29.5 % (20-40); Mean Corpuscular HGB Conc 34.9 g/dl (31.0-36.0); Mean Corpuscular Hemoglobin 30.6 pg (27.0-33.0); Mean Corpuscular Volume 87.7 fL (80.0-98.0); Mean Platelet Volume 10.3 fL (9.4-12.4); Monocytes Absolute Auto 0.5 X10*3/uL (0.1-1.2); Monocytes Percent Auto 11.6 % (2-11); Neutrophils Absolute Auto 2.6 x10*3/uL (2.0-8.3); Neutrophils Percent Auto 57.7 % (45-73); Platelet Count 178 X10*3/uL (160-400); Red Blood Count 4.96 X10*6/uL (4.60-5.80); Red Cell Distribution Width 13.5 % (11.0-16.0); White Blood Count 4.6 X10*3/uL (4.8-10.8)
[2023-12-31 07:35] LABS: Alanine Aminotransferase 26 U/L (0-40); Albumin Level 4.1 g/dL (3.5-5.0); Alkaline Phosphatase 66 U/L (39-117); Anion Gap 11 (12-20); Aspartate Amino Transferase 26 U/L (5-37); Bilirubin Total 0.4 mg/dL (0.0-1.0); Blood Urea Nitrogen 10 mg/dL (9-16); Calcium 8.8 mg/dL (8.4-10.2); Carbon Dioxide 26 mmol/L (22-29); Chloride 111 mmol/L (96-108); Creatinine Clr Calc Pharmacy 108.2; Estimated Glomerular Filt Rate > 60; Glucose Fasting 98 mg/dL (60-99); Potassium 3.7 mmol/L (3.3-5.1); Sodium 144 mmol/L (135-145); Total Protein 6.7 g/dL (6.5-8.0)
[2023-12-31 08:00] LABS: Influenza A PCR NEGATIVE (Negative); Influenza B PCR NEGATIVE (Negative); Resp Syncy Virus RNA Qual PCR NEGATIVE (Negative); SARS COV2 PCR INHOUSE NEGATIVE (Negative)
--- NOTE | 2023-12-31 08:53 | ED_ITS ---
HPI - Nausea/Vomiting/Diarrhea General Chief complaint: Nausea/Vomiting/Diarrhea Stated complaint: hot and cold, diarrhea, nausea Time Seen by Provider: 12/31/23 08:52 Source: patient and RN notes reviewed Mode of arrival: ambulatory Limitations: no limitations History of Present Illness HPI Narrative: This is a 53-year-old male, with a past medical history of recent acute appendicitis diagnosis by CT scan without appendectomy, who presents emergency department for evaluation of ongoing intermittent hot and cold flashes, diarrhea, nausea. Patient was seen in medically evaluated in the emergency department on December 09 due to nausea, vomiting, diarrhea, and was found to have appendicitis. Assess that patient did not have a true acute appendicitis as an was admitted to the hospital for 2 days and overall diagnosis was gastroenteritis. At that time he was unable to provide a stool sample. He denies any chest pain, shortness of breath, abdominal pain, vomiting, urinary symptoms. Denies any bloody or black stool. He has not had a colonoscopy. He states he is afraid to eat as the diarrhea has been ongoing. He states that he typically has 2-3 episodes of diarrhea per day. No other complaints or concerns this time. MD elicited complaint: nausea and diarrhea Associated nausea: Yes Associated abdominal pain: No Location of pain: none Pain consistency: constant Exacerbating factors: eating and bowel movement Relieving factors: none Associated symptoms: denies other symptoms Related Data Home Medications ?Medication ?Instructions ?Recorded ?Confirmed esomeprazole magnesium 20 mg 20 mg PO DAILY PRN Heartburn 12/10/23 12/10/23 capsule,delayed release (Nexium) naproxen sodium 220 mg tablet 220 mg PO BID PRN Pain 12/10/23 12/10/23 (Aleve) Previous Rx's ?Medication ?Instructions ?Recorded albuterol sulfate 90 mcg/actuation 2 puff inhalation Q4-6H PRN 10/15/23 aerosol inhaler (ProAir HFA) shortness of breath or wheezing #6.7 grams Allergies Allergy/AdvReac Type Severity Reaction Status Date / Time No Known Allergies Allergy Verified 12/31/23 07:07 Review of Systems 2 Review of Systems: Yes all other systems are reviewed and are negative Constitutional: Constitutional: Reports as per HPI Gastrointestinal: Gastrointestinal: Reports nausea PMFSH Past Medical History Medical History Feeling unwell Ex-smoker Social History Social History Alcohol intake: current Alcohol type: beer Comment: 2 24oz beers, several times per week Patient Tobacco Use Status: Former Tobacco user Quit Date: 1998 Advance Directives: Yes Advance Directives on File: Yes Advance Directives Date on File: 12/15/23 service: No Physical Exam 2 Vital Signs: Vital Signs: Last Vital Signs Temp 97.8 F 12/31/23 14:01 Pulse 68 12/31/23 14:01 Resp 16 12/31/23 14:01 BP 136/83 12/31/23 14:01 Pulse Ox 97 12/31/23 14:01 O2 Del Method Room Air 12/31/23 14:01 BMI result Body Mass Index 25.8 Const: General: cooperative, comfortable and no acute distress O rientation/consciousness: patient oriented x3 Limitations: no limitations HEENT: Head: Yes normal to inspection, Yes normocephalic and Yes atraumatic Ears: hearing grossly normal bilaterally General nose exam: Normal external nose present Face and sinus: Yes normal facial exam Mouth: Normal oral and palatal mucosa present, oropharynx normal and moist mucous membranes Throat: Yes posterior oropharynx normal Eyes: General: appearance normal, both eyes and all related structures E yelids: Yes eyelids normal Conjunctivae: conjunctivae normal Sclerae: s clerae normal Pupils: Equal, round and reactive pupils present EOM: EOMs intact bilaterally Neck: Neck: Yes normal visual inspection, Yes full ROM and Yes no lymphadenopathy Lymphatic: no lymphadenopathy noted Chest: Chest palpation & inspection: normal inspection of the chest Resp: Effort & Inspection: normal respiratory effort and able to speak in complete sentences Auscultation: clear to auscultation bilaterally, no crackles, no rales, no rhonchi and no wheezes Cardio: Rate: regular rate Rhythm: regular rhythm Heart sounds: S1 normal heart sound present and S2 normal heart sound present GI: Inspection: Yes normal to inspection Skin: General skin exam: no rashes or lesions noted Trauma: no lacerations or abrasions Wounds: no wounds Neuro: General: patient oriented x3 and moves all extremities Cranial nerves: Yes Equal, round and reactive pupils present Extrem: General: Yes normal to inspection Right upper extremity: normal to inspection Left upper extremity: normal to inspection Right lower extremity: normal to inspection Left lower extremity: normal to inspection Course Reevaluation(s) Reevaluation #1: CT scan revealing no acute abdominal abnormality. Of note, radiologist reports prior appendectomy with no fluid collections in the right lower quadrant. I called over to Radiology as patient did not have an appendectomy, they will place an addendum onto the report. Time: 12:25 Reevaluation #2: Addendum was added, CT is normal. Patient has been attempting to have bowel movement in department without any luck. Patient given outpatient lab requisition to have this done there. He is eating and drinking without difficulty. Patient given containers for testing. I also explained to him the importance of following up with GI given change in store. He understands and agrees with plan. Patient stable for discharge. Time: 14:30 Medications Administered Discontinued Medications Generic Name Dose Route Start Last Admin Trade Name Freq PRN Reason Stop Dose Admin Sodium Chloride 1,000 mls @ 999 mls/hr 12/31/23 09:40 12/31/23 11:55 Ns IV 12/31/23 10:40 Infused .Q1H1M ONE Infusion Iohexol 100 ml 12/31/23 10:12 12/31/23 10:12 Iohexol 350 Mg/Ml 100 Ml Infus..Btl IV 12/31/23 10:13 85 ml ONCE ONE Administration Medical Decision Making Medical Decision Making MDM Narrative: This is a 53-year-old male, with a recent diagnosis of appendicitis by CT scan but thought to be gastroenteritis, who presents emergency department with ongoing intermittent fevers/chills, intermittent diarrhea, and nausea since his discharge 2 weeks ago. Patient was seen in the emergency room on December 09 and was diagnosed with appendicitis however abdomen was soft nontender, thought to be gastroenteritis. He was admitted for 2 days and was discharged. He states that since the discharge date he has had ongoing diarrhea. He states he is fearful to eat as he continues to have this diarrhea. He has no abdominal pain. On arrival, patient nontoxic appearing, under no acute distress. Blood pressure mildly elevated at 140 9/87, all other vital signs within normal limits. Given recent diagnosis of appendicitis on CT scan, will repeat CT scan today. Labs are reassuring, no leukocytosis, chemistry within normal limits. Viral swabs negative. Plan: Labs, CT abdomen and pelvis, IV fluids, stool sample Differential Diagnosis Differential Diagnoses: The differential diagnosis associated with the presentation includes Gastroenteritis, gastritis, electrolyte derangement, appendicitis, diverticulitis, diverticulosis Admission/Observation Consideration of admission/observation: Escalation of care including admission/observation considered Escalation of care including admission/observation considered however given workup today not warranted at this time. Lab Data MDM Lab Attestation statement: I reviewed the patient's lab results. Slight leukopenia at 4.6, chemistry within normal limits, negative viral swabs. 12/31/23 07:15 12/31/23 07:15 Labs: Lab Results 12/31/23 12/31/23 Range/Units 07:14 07:15 WBC 4.6 L (4.8-10.8) X10*3/uL RBC 4.96 (4.60-5.80) X10*6/uL Hgb 15.2 (14.0-18.0) g/dl Hct 43.5 (42.0-52.0) % MCV 87.7 (80.0-98.0) fL MCH 30.6 (27.0-33.0) pg MCHC 34.9 (31.0-36.0) g/dl RDW 13.5 (11.0-16.0) % Plt Count 178 (160-400) X10*3/uL MPV 10.3 (9.4-12.4) fL Immature Gran % (Auto) 0.4 (0.0-0.4) % Neut % (Auto) 57.7 (45-73) % Lymph % (Auto) 29.5 (20-40) % [place] % (Auto) 11.6 H (2-11) % Eos % (Auto) 0.4 (0-4) % Baso % (Auto) 0.4 (0-2) % Lymph # (Auto) 1.4 (1.2-4.9) X10*3/uL [place] # (Auto) 0.5 (0.1-1.2) X10*3/uL Eos # (Auto) 0.0 (0.0-0.4) X10*3/uL Baso # (Auto) 0.0 (0.0-0.2) X10*3/uL Abs Immat Gran (auto) 0.02 (0.00-0.03) X10*3/uL Absolute Neuts (auto) 2.6 (2.0-8.3) x10*3/uL Absolute Nucleated RBC 0.000 (0.0-0.012) X10*3/uL Nucleated RBC % (auto) 0.0 (0.0-0.2) /100WBC Sodium 144 (135-145) mmol/L Potassium 3.7 (3.3-5.1) mmol/L Chloride 111 H (96-108) mmol/L Carbon Dioxide 26 (22-29) mmol/L Anion Gap 11 L (12-20) BUN 10 (9-16) mg/dL Creatinine 0.78 (0.5-1.4) mg/dL Estim Creat Clear Calc 108.2 Estimated GFR > 60 Fasting Glucose 98 (60-99) mg/dL Calcium 8.8 D (8.4-10.2) mg/dL Total Bilirubin 0.4 (0.0-1.0) mg/dL AST 26 (5-37) U/L ALT 26 (0-40) U/L Alkaline Phosphatase 66 (39-117) U/L Total Protein 6.7 (6.5-8.0) g/dL Albumin 4.1 (3.5-5.0) g/dL Influenza Type A (PCR) NEGATIVE (Negative) Influenza Type B (PCR) NEGATIVE (Negative) RSV RNA Qual (PCR) NEGATIVE (Negative) SARS-CoV-2 RNA (RT-PCR) NEGATIVE (Negative) Radiology Impression Discussion of test interpretation with radiology: I have reviewed the radiologist's reading. Radiologist Impression: ADDENDUMGASTROINTESTINAL TRACT: The small and large bowel are unremarkable. The appendix is not visualized. No fluid collections in the right lower quadrant. IMPRESSION: 1. No acute abdominal abnormality. 2. The appendix is not visualized. No fluid collections in the right lower quadrant. Addendum Dictated By: Pina Bales MD Addendum Signed By: <Electronically signed by Pina Bales MD in [place]> 12/31/23 1321 Addendum Cosigned By: DD/ TD/TT: / EXAMINATION: CT ABDOMEN AND PELVIS WITH CONTRAST CLINICAL INFORMATION: Diarrhea, history of appendicitis COMPARISON: CT abdomen pelvis on 12/09/2013 TECHNIQUE: Multidetector volumetric images were obtained from the superior aspect of the liver through the pubic symphysis following administration 85 mL of Omnipaque 350 intravenous contrast. Sagittal and coronal reformatted images were obtained on the technologist's workstation. Oral contrast: No This CT examination was performed using dose optimization techniques as appropriate, variously including the following: *Automated exposure control *Adjustment of mA and/or kV according to patient size (this includes techniques or standardized protocols for targeted exams where dose is matched to indication/reason for exam; i.e. extremities or head) *Use of iterative reconstruction technique DLP: 450 mGy-cm FINDINGS: LUNG BASES: The visualized lung bases are unremarkable. LIVER, GALLBLADDER, AND BILIARY TREE: The liver is normal in size, shape, and attenuation. No focal hepatic lesion or biliary ductal dilatation is present. The gallbladder is unremarkable with no evidence of radiopaque gallstones, gallbladder wall thickening, or obvious pericholecystic inflammatory changes. PANCREAS: Unremarkable. SPLEEN: Unremarkable. ADRENAL GLANDS: Unremarkable. KIDNEYS AND URETERS: The kidneys are normal in size, shape, and attenuation. No hydronephrosis, hydroureter, or calculi seen. No perinephric stranding. BLADDER: Unremarkable. GASTROINTESTINAL TRACT: The small and large bowel are unremarkable. Prior appendectomy. No fluid collections in the right lower quadrant. ABDOMINAL WALL: Small fat-containing umbilical hernia. LYMPH NODES: Normal. VASCULAR: Unremarkable. PELVIC VISCERA: Unremarkable. OSSEOUS STRUCTURES: Unremarkable. CT/CT abdomen pelvis w IV con IMPRESSION: 1. No acute abdominal abnormality. 2. Prior appendectomy. No fluid collections in the right lower quadrant. Fleischner guidelines were followed. Dictated By: Pina Bales MD Discharge Plan Discharge Clinical Impression: Diarrhea Patient Disposition: Home, Self-Care Instructions: Acute Diarrhea (ED) Additional Instructions: You were seen in the emergency department for ongoing changes in your stool. Your blood work was reassuring. Your CT scan was normal. Drink plenty of fluids get plenty of rest. Please drop off your stool samples for further testing at your earliest convenience. We will call you if there is any positive results. You need to follow-up with GI, call today to make an appointment. If any new or worsening symptoms occur including but not limited to chest pain, shortness of breath, abdominal pain, nausea, vomiting, or worsening diarrhea, please return for re-evaluation. Stick to a diet, avoid spicy or fried food. Avoid dairy. Diet consisting of bananas rice, applesauce, toast can also help with your symptoms. Prescriptions: No Action albuterol sulfate [ProAir HFA] 90 mcg/actuation HFA aerosol inhaler 2 puff inhalation Q4-6H PRN (Reason: shortness of breath or wheezing) Qty: 6.7 0RF naproxen sodium [Aleve] 220 mg Tablet 220 mg PO BID PRN (Reason: Pain) esomeprazole magnesium [Nexium] 20 mg Capsule,Delayed Release(Dr/Ec) 20 mg PO DAILY PRN (Reason: Heartburn) Referrals: [facility] – [place] [facility] [Provider Group] Stand Alone Forms: Work/School Release Print Language: Tajik
[2023-12-31] MEDS: 0.9 % Sodium Chloride 1,000 ML 999 ML IV (09:45)
[2023-12-31] MEDS: iohexoL 350 MG/ML 100 ML INFUS..BTL IV (10:12)
[2023-12-31 10:45] VITALS: BP 162/86; PULSE 72; RESP 16; TEMP 37.1; O2SAT 97
--- NOTE | 2023-12-31 13:40 | PC.NURSE ---
turkey sandwich and water given to patient.
[2023-12-31 14:01] VITALS: BP 136/83; PULSE 68; RESP 16; TEMP 36.6; O2SAT 97
--- NOTE | 2023-12-31 14:06 | PC.NURSE ---
patient resting on stretcher. skin pwd. resp even and non labored. speaking in full, clear sentences. denies abd pain at this time. aware of need for stool sample, given food per PA.
[2023-12-31 14:40] VITALS: BP 136/83; PULSE 68; RESP 16; TEMP 36.6; O2SAT 97
== END 2023-12-31 14:41 | disposition home or self-care (01) ==
PROVIDERS: Emergency Provider Emergency Medicine; PCP Hospitalist
DX: R11.2 Nausea with vomiting, unspecified (principal); R10.2 Pelvic and perineal pain; Z79.899 Other long term (current) drug therapy; Z03.818 Encounter for observation for suspected exposure to other biological agents ruled out
CPT/HCPCS: 0241U; 36415; 74177; 80053; 85025; 96360; 96361; 99284; Q9967

== ENCOUNTER 2024-01-11 00:05 | Emergency (ER) | payer BC, SELFPAY ==
[2024-01-11 00:24] VITALS: BP 153/96; PULSE 79; RESP 16; TEMP 36.5; O2SAT 99; BMI 25.7
[2024-01-11 00:33] LABS: MANUAL DIFF FLAG NO
[2024-01-11 00:34] LABS: Basophils Percent Auto 0.5 % (0-2); Eosinophils Percent Auto 0.3 % (0-4); Hematocrit 40.3 % (42.0-52.0); Hemoglobin 14.1 g/dl (14.0-18.0); Imm Gran Abs Auto 0.02 X10*3/uL (0.00-0.03); Imm Gran Pct Auto 0.3 % (0.0-0.4); Lymphocytes Absolute Auto 2.1 X10*3/uL (1.2-4.9); Lymphocytes Percent Auto 35.9 % (20-40); Mean Corpuscular Hemoglobin 30.5 pg (27.0-33.0); Mean Corpuscular Volume 87.2 fL (80.0-98.0); Mean Platelet Volume 9.5 fL (9.4-12.4); Monocytes Absolute Auto 0.7 X10*3/uL (0.1-1.2); Monocytes Percent Auto 11.4 % (2-11); Neutrophils Percent Auto 51.6 % (45-73); Platelet Count 176 X10*3/uL (160-400); Red Blood Count 4.62 X10*6/uL (4.60-5.80); Red Cell Distribution Width 13.8 % (11.0-16.0); White Blood Count 5.9 X10*3/uL (4.8-10.8)
[2024-01-11 00:49] LABS: Alanine Aminotransferase 33 U/L (0-40); Albumin Level 3.9 g/dL (3.5-5.0); Alkaline Phosphatase 58 U/L (39-117); Anion Gap 12 (12-20); Aspartate Amino Transferase 39 U/L (5-37); Bilirubin Direct 0.1 mg/dL (0.0-0.5); Bilirubin Total 0.3 mg/dL (0.0-1.0); Blood Urea Nitrogen 10 mg/dL (9-16); Calcium 8.2 mg/dL (8.4-10.2); Carbon Dioxide 23 mmol/L (22-29); Chloride 110 mmol/L (96-108); Creatinine Clr Calc Pharmacy 117.2; Estimated Glomerular Filt Rate > 60; Glucose Random 101 mg/dL (60-115); Lipase 47 U/L (8-78); Magnesium 1.8 mg/dL (1.6-2.6); Potassium 3.5 mmol/L (3.3-5.1); Sodium 141 mmol/L (135-145); Total Protein 6.3 g/dL (6.5-8.0)
--- NOTE | 2024-01-11 00:53 | ED.NAVMDI ---
HPI - Nausea/Vomiting/Diarrhea General Chief complaint: Nausea/Vomiting/Diarrhea Stated complaint: diarehea Time Seen by Provider: 01/11/24 00:50 Source: patient Mode of arrival: ambulatory Limitations: no limitations History of Present Illness HPI Narrative: Patient has frequent diarrhea since 12/09 been here multiple times had to CT scan which were negative for acute comes here again having diarrhea since yesterday multiple times has not been able to give the stool sample for testing last bowel movement was a few hours ago patient's whenever he eats after an hours or so has watery diarrhea no recent travel no fever no chills patient denied any significant abdominal pain Related Data Home Medications ?Medication ?Instructions ?Recorded ?Confirmed esomeprazole magnesium 20 mg 20 mg PO DAILY PRN Heartburn 12/10/23 12/10/23 capsule,delayed release (Nexium) naproxen sodium 220 mg tablet 220 mg PO BID PRN Pain 12/10/23 12/10/23 (Aleve) Previous Rx's ?Medication ?Instructions ?Recorded albuterol sulfate 90 mcg/actuation 2 puff inhalation Q4-6H PRN 10/15/23 aerosol inhaler (ProAir HFA) shortness of breath or wheezing #6.7 grams ciprofloxacin HCl 500 mg tablet 500 mg PO BID #14 tabs 01/11/24 (Cipro) dicyclomine 20 mg tablet 20 mg PO TID PRN abdominal pain 01/11/24 #14 tabs metronidazole 500 mg tablet 500 mg PO BID 7 days #14 tabs 01/11/24 Allergies Allergy/AdvReac Type Severity Reaction Status Date / Time No Known Allergies Allergy Verified 01/11/24 00:25 Review of Systems Review of Systems: Yes all other systems are reviewed and are negative PMFSH Past Medical History Medical History Feeling unwell Ex-smoker Social History Social History Alcohol intake: current Alcohol type: beer Comment: 2 24oz beers, several times per week Patient Tobacco Use Status: Former Tobacco user Quit Date: 1998 Advance Directives Date on File: 12/15/23 Do you have a plan to hurt others: No Plan service: No Physical Exam Vital Signs: Vital Signs: Last Vital Signs Temp 97.7 F 01/11/24 00:24 Pulse 79 01/11/24 00:24 Resp 16 01/11/24 00:24 BP 153/96 H 01/11/24 00:24 Pulse Ox 99 01/11/24 00:24 O2 Del Method Room Air 01/11/24 00:24 BMI result Body Mass Index 25.7 Appearance: Alert. Oriented X3. No acute distress. Eyes: PERRLA, No Nystagmus ENT: Pharynx normal. Oral Mucosa moist Neck: Normal inspection. Neck supple. CVS: Normal heart rate and rhythm. Pulses normal. Respiratory: No respiratory distress. Equal air entry bilateral, no wheezing/rales/rhonchi Abdomen: Soft and nontender. Bowel sounds are present, no mass palpable, no CVA tenderness Skin: Skin warm and dry. Normal skin color. Normal skin turgor. Extremities: No lower extremity edema. No calf tenderness Neuro: Oriented X 3. Medical Decision Making Medical Decision Making [facility] Narrative: Patient with gastroenteritis for about a month etiology not very clear will give a short course of Cipro and Flagyl and dicyclomine advised to follow with all source intelligence technician Lab Data [facility] Lab Attestation statement: I reviewed the patient's lab results. 01/11/24 00:29 01/11/24 00:29 Labs: Lab Results 01/11/24 Range/Units 00:29 WBC 5.9 (4.8-10.8) X10*3/uL RBC 4.62 (4.60-5.80) X10*6/uL Hgb 14.1 (14.0-18.0) g/dl Hct 40.3 L (42.0-52.0) % MCV 87.2 (80.0-98.0) fL MCH 30.5 (27.0-33.0) pg MCHC 35.0 (31.0-36.0) g/dl RDW 13.8 (11.0-16.0) % Plt Count 176 (160-400) X10*3/uL MPV 9.5 (9.4-12.4) fL Immature Gran % (Auto) 0.3 (0.0-0.4) % Neut % (Auto) 51.6 (45-73) % Lymph % (Auto) 35.9 (20-40) % [place] % (Auto) 11.4 H (2-11) % Eos % (Auto) 0.3 (0-4) % Baso % (Auto) 0.5 (0-2) % Lymph # (Auto) 2.1 (1.2-4.9) X10*3/uL [place] # (Auto) 0.7 (0.1-1.2) X10*3/uL Eos # (Auto) 0.0 (0.0-0.4) X10*3/uL Baso # (Auto) 0.0 (0.0-0.2) X10*3/uL Abs Immat Gran (auto) 0.02 (0.00-0.03) X10*3/uL Absolute Neuts (auto) 3.0 (2.0-8.3) x10*3/uL Absolute Nucleated RBC 0.000 (0.0-0.012) X10*3/uL Nucleated RBC % (auto) 0.0 (0.0-0.2) /100WBC Sodium 141 (135-145) mmol/L Potassium 3.5 (3.3-5.1) mmol/L Chloride 110 H (96-108) mmol/L Carbon Dioxide 23 (22-29) mmol/L Anion Gap 12 (12-20) BUN 10 (9-16) mg/dL Creatinine 0.72 (0.5-1.4) mg/dL Estim Creat Clear Calc 117.2 Estimated GFR > 60 Random Glucose 101 (60-115) mg/dL Calcium 8.2 L D (8.4-10.2) mg/dL Magnesium 1.8 (1.6-2.6) mg/dL Total Bilirubin 0.3 (0.0-1.0) mg/dL Direct Bilirubin 0.1 (0.0-0.5) mg/dL AST 39 H (5-37) U/L ALT 33 (0-40) U/L Alkaline Phosphatase 58 (39-117) U/L Total Protein 6.3 L (6.5-8.0) g/dL Albumin 3.9 (3.5-5.0) g/dL Lipase 47 (8-78) U/L Discharge Plan Discharge Clinical Impression: Gastroenteritis Patient Disposition: Home, Self-Care Instructions: Acute Diarrhea (ED) Additional Instructions: Drink plenty of fluids Take medication as prescribed for 7 days Follow-up with all source intelligence technician if symptoms continue Prescriptions: New ciprofloxacin HCl [Cipro] 500 mg tablet 500 mg PO BID Qty: 14 0RF metronidazole 500 mg tablet 500 mg PO BID 7 Days Qty: 14 0RF dicyclomine 20 mg tablet 20 mg PO TID PRN (Reason: abdominal pain) Qty: 14 0RF No Action albuterol sulfate [ProAir HFA] 90 mcg/actuation HFA aerosol inhaler 2 puff inhalation Q4-6H PRN (Reason: shortness of breath or wheezing) Qty: 6.7 0RF naproxen sodium [Aleve] 220 mg Tablet 220 mg PO BID PRN (Reason: Pain) esomeprazole magnesium [Nexium] 20 mg Capsule,Delayed Release(Dr/Ec) 20 mg PO DAILY PRN (Reason: Heartburn) Referrals: Krys Mares MD [Physician] - Print Language: Wallisian
[2024-01-11 01:10] VITALS: BP 145/96; PULSE 69; RESP 14; TEMP 36.7; O2SAT 97
[2024-01-11] MEDS: Dicyclomine HCl 10 MG CAPSULE 20 MG PO (01:14)
[2024-01-11] MEDS: metroNIDAZOLE 500 MG TABLET PO (01:14)
[2024-01-11] MEDS: levoFLOXacin 500 MG TABLET PO (01:14)
[2024-01-11 01:22] VITALS: BP 145/96; PULSE 69; RESP 14; TEMP 36.7; O2SAT 97
== END 2024-01-11 01:22 | disposition home or self-care (01) ==
PROVIDERS: Emergency Medicine; Emergency Provider Internal Medicine; PCP Hospitalist
DX: K52.9 Noninfective gastroenteritis and colitis, unspecified (principal)
CPT/HCPCS: 36415; 80048; 80076; 83690; 83735; 85025; 99283; 99284

== ENCOUNTER 2024-01-19 20:56 | Emergency (ER) | payer SELFPAY ==
[2024-01-19 21:48] VITALS: BP 159/93; PULSE 80; RESP 14; TEMP 36.2; O2SAT 96; BMI 23.4
[2024-01-19 22:42] LABS: MANUAL DIFF FLAG NO
[2024-01-19 22:44] LABS: Basophils Percent Auto 0.4 % (0-2); Eosinophils Percent Auto 0.1 % (0-4); Hematocrit 41.4 % (42.0-52.0); Hemoglobin 15.2 g/dl (14.0-18.0); Imm Gran Abs Auto 0.02 X10*3/uL (0.00-0.03); Imm Gran Pct Auto 0.2 % (0.0-0.4); Lymphocytes Absolute Auto 2.2 X10*3/uL (1.2-4.9); Lymphocytes Percent Auto 25.3 % (20-40); Mean Corpuscular HGB Conc 36.7 g/dl (31.0-36.0); Mean Corpuscular Hemoglobin 31.5 pg (27.0-33.0); Mean Corpuscular Volume 85.9 fL (80.0-98.0); Mean Platelet Volume 9.9 fL (9.4-12.4); Monocytes Absolute Auto 0.9 X10*3/uL (0.1-1.2); Monocytes Percent Auto 10.9 % (2-11); Neutrophils Absolute Auto 5.4 x10*3/uL (2.0-8.3); Neutrophils Percent Auto 63.1 % (45-73); Platelet Count 195 X10*3/uL (160-400); Red Blood Count 4.82 X10*6/uL (4.60-5.80); Red Cell Distribution Width 13.1 % (11.0-16.0); White Blood Count 8.5 X10*3/uL (4.8-10.8)
[2024-01-19 23:00] LABS: Alanine Aminotransferase 27 U/L (0-40); Albumin Level 4.2 g/dL (3.5-5.0); Alkaline Phosphatase 66 U/L (39-117); Anion Gap 18 (12-20); Aspartate Amino Transferase 31 U/L (5-37); Bilirubin Total 0.5 mg/dL (0.0-1.0); Blood Urea Nitrogen 12 mg/dL (9-16); Calcium 9.2 mg/dL (8.4-10.2); Carbon Dioxide 21 mmol/L (22-29); Chloride 104 mmol/L (96-108); Creatinine Clr Calc Pharmacy 106.8; Estimated Glomerular Filt Rate > 60; Glucose Random 95 mg/dL (60-115); Potassium 3.2 mmol/L (3.3-5.1); Sodium 140 mmol/L (135-145); Total Protein 6.9 g/dL (6.5-8.0)
--- NOTE | 2024-01-20 04:29 | ED.NAVMDI ---
HPI - Nausea/Vomiting/Diarrhea General Chief complaint: Nausea/Vomiting/Diarrhea Stated complaint: diarrhea, meds not working Time Seen by Provider: 01/20/24 04:21 Source: patient and old records reviewed Mode of arrival: ambulatory Limitations: no limitations History of Present Illness HPI Narrative: 53 yo male with PMH of asthma has been seen here in November and December with continued intermittent nausea and diarrhea he has been admitted and treated for initially appendicitis but then dx with gastroenteritis - repeat CT scans, labs, unable to get stools studies when his main complaint is diarrhea any time he eats. Last seen 01/10 for diarrhea started on cipro and flagyl that did not work per his reports. 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 No pain fevers or vomiting MD elicited complaint: diarrhea Onset (ago): month(s) (2) Description of diarrhea: watery and semi-solid Associated nausea: No Associated abdominal pain: No Severity: moderate Exacerbating factors: eating Relieving factors: none Associated symptoms: denies other symptoms Related Data Home Medications ?Medication ?Instructions ?Recorded ?Confirmed esomeprazole magnesium 20 mg 20 mg PO DAILY PRN Heartburn 12/10/23 12/10/23 capsule,delayed release (Nexium) naproxen sodium 220 mg tablet 220 mg PO BID PRN Pain 12/10/23 12/10/23 (Aleve) Previous Rx's ?Medication ?Instructions ?Recorded albuterol sulfate 90 mcg/actuation 2 puff inhalation Q4-6H PRN 10/15/23 aerosol inhaler (ProAir HFA) shortness of breath or wheezing #6.7 grams ciprofloxacin HCl 500 mg tablet 500 mg PO BID #14 tabs 01/11/24 (Cipro) dicyclomine 20 mg tablet 20 mg PO TID PRN abdominal pain 01/11/24 #14 tabs metronidazole 500 mg tablet 500 mg PO BID 7 days #14 tabs 01/11/24 Allergies Allergy/AdvReac Type Severity Reaction Status Date / Time No Known Allergies Allergy Verified 01/19/24 21:51 Review of Systems Review of Systems: Constitutional : No Weight loss, No Fever, No Chills ENT/Mouth : No sore throat, No Rhinorrhea Eyes: No Swelling, No Redness Cardiovascular : No Chest Pain, No SOB, NoEdema Respiratory : No Cough, No Sputum, No Wheezing Gastrointestinal : no Nausea, no Vomiting, positive Diarrhea, no abdominal Pain, No Hematochezia, No Melena Genitourinary : No Dysuria, No Urinary Frequency, No Hematuria, No Urgency Musculoskeletal : No joint pain, No Myalgias, No Joint Swelling Skin : No Skin Lesions, No rash Neuro : No Weakness, No Numbness, No Dizziness, No Headache Psych : No Anxiety/Panic, No Depression All other systems reviewed and are negative. Gastrointestinal: Gastrointestinal: Denies nausea PMFSH Past Medical History Attestation statement: The following information was validated with the patient. Source: old records reviewed Medical History Feeling unwell Ex-smoker Social History Social History Alcohol intake: current Alcohol intake frequency: holidays/special occasions only Alcohol type: beer Comment: 2 24oz beers, several times per week Patient Tobacco Use Status: Former Tobacco user Quit Date: 1998 Smoked in Last 30 Days: No Use of substances other than those prescribed or required for medical reasons: No Advance Directives: Yes Advance Directives on File: Yes Advance Directives Date on File: 12/15/23 Do you have a plan to hurt others: No Plan service: No Physical Exam Vital Signs: Vital Signs: Last Vital Signs Temp 97.8 F 01/20/24 04:37 Pulse 80 01/20/24 04:37 Resp 18 01/20/24 04:37 BP 169/97 H 01/20/24 04:37 Pulse Ox 98 01/20/24 04:37 O2 Del Method Room Air 01/20/24 04:37 BMI result Body Mass Index 23.4 Appearance: Alert. Oriented X3. No acute distress. Eyes: Pupils equal, round and reactive to light. ENT: Pharynx normal. Neck: Normal inspection. Neck supple. CVS: Normal heart rate and rhythm. Pulses normal. Respiratory: No respiratory distress. Breath sounds normal. Abdomen: Soft and nontender. Skin: Skin warm and dry. Normal skin color. Normal skin turgor. Extremities: No lower extremity edema. No calf ttp Neuro: Oriented X 3. No motor deficit. No sensory deficit. Medications Administered Discontinued Medications Generic Name Dose Route Start Last Admin Trade Name Freq PRN Reason Stop Dose Admin Potassium Chloride 40 meq 01/20/24 04:22 01/20/24 05:15 Potassium Chloride Packet 20 Meq Packet PO 01/20/24 04:23 40 meq ONCE ONE Administration Medical Decision Making Medical Decision Making MDM Narrative: 53 yo male who has been seen multiple times for diarrhea with CT scans but unable to provide stool study - just treated with cipro and flagyl no improvement has not had colonoscopy. At this time plan would be to obtain labs, stool panel after feeding him and no need for CT scan he has no pain on exam. If unable to will refer to GI as outpatient Differential Diagnosis Differential Diagnoses: The differential diagnosis associated with the presentation includes diarrhea, IBS, food intolerance Admission/Observation Consideration of admission/observation: Escalation of care including admission/observation considered no diarrhea in 9 hours even with eating at this time already has outpatient order for stool studies and GI referral number will DC home with outpatient follow up eating drinking not toxic Lab Data [facility] Lab Attestation statement: I reviewed the patient's lab results. repleted K 01/19/24 22:37 01/19/24 22:37 Labs: Lab Results 01/19/24 Range/Units 22:37 WBC 8.5 (4.8-10.8) X10*3/uL RBC 4.82 (4.60-5.80) X10*6/uL Hgb 15.2 (14.0-18.0) g/dl Hct 41.4 L (42.0-52.0) % MCV 85.9 (80.0-98.0) fL MCH 31.5 (27.0-33.0) pg MCHC 36.7 H (31.0-36.0) g/dl RDW 13.1 (11.0-16.0) % Plt Count 195 (160-400) X10*3/uL MPV 9.9 (9.4-12.4) fL Immature Gran % (Auto) 0.2 (0.0-0.4) % Neut % (Auto) 63.1 (45-73) % Lymph % (Auto) 25.3 (20-40) % [place] % (Auto) 10.9 (2-11) % Eos % (Auto) 0.1 (0-4) % Baso % (Auto) 0.4 (0-2) % Lymph # (Auto) 2.2 (1.2-4.9) X10*3/uL [place] # (Auto) 0.9 (0.1-1.2) X10*3/uL Eos # (Auto) 0.0 (0.0-0.4) X10*3/uL Baso # (Auto) 0.0 (0.0-0.2) X10*3/uL Abs Immat Gran (auto) 0.02 (0.00-0.03) X10*3/uL Absolute Neuts (auto) 5.4 (2.0-8.3) x10*3/uL Absolute Nucleated RBC 0.000 (0.0-0.012) X10*3/uL Nucleated RBC % (auto) 0.0 (0.0-0.2) /100WBC Sodium 140 (135-145) mmol/L Potassium 3.2 L (3.3-5.1) mmol/L Chloride 104 (96-108) mmol/L Carbon Dioxide 21 L (22-29) mmol/L Anion Gap 18 (12-20) BUN 12 (9-16) mg/dL Creatinine 0.79 (0.5-1.4) mg/dL Estim Creat Clear Calc 106.8 Estimated GFR > 60 Random Glucose 95 (60-115) mg/dL Calcium 9.2 D (8.4-10.2) mg/dL Total Bilirubin 0.5 (0.0-1.0) mg/dL AST 31 (5-37) U/L ALT 27 (0-40) U/L Alkaline Phosphatase 66 (39-117) U/L Total Protein 6.9 (6.5-8.0) g/dL Albumin 4.2 (3.5-5.0) g/dL External Record Review External record reviewed: Inpatient record Prescription Management I considered prescription management with: Other Discharge Plan Discharge Clinical Impression: Chronic diarrhea, Acute hypokalemia Patient Disposition: Home, Self-Care Instructions: Hypokalemia (ED), Nutrition Tips for Relief of Diarrhea (ED) Additional Instructions: bring the stool study to the lab. stay hydrated return for bloody stools, dizziness, severe abdominal pain or any other concerns. please also call the GI team Prescriptions: No Action albuterol sulfate [ProAir HFA] 90 mcg/actuation HFA aerosol inhaler 2 puff inhalation Q4-6H PRN (Reason: shortness of breath or wheezing) Qty: 6.7 0RF naproxen sodium [Aleve] 220 mg Tablet 220 mg PO BID PRN (Reason: Pain) esomeprazole magnesium [Nexium] 20 mg Capsule,Delayed Release(Dr/Ec) 20 mg PO DAILY PRN (Reason: Heartburn) ciprofloxacin HCl [Cipro] 500 mg tablet 500 mg PO BID Qty: 14 0RF metronidazole 500 mg tablet 500 mg PO BID 7 Days Qty: 14 0RF dicyclomine 20 mg tablet 20 mg PO TID PRN (Reason: abdominal pain) Qty: 14 0RF Print Language: Mexican
[2024-01-20 04:37] VITALS: BP 169/97; PULSE 80; RESP 18; TEMP 36.6; O2SAT 98
[2024-01-20] MEDS: Potassium Chloride Packet 20 MEQ PACKET 40 MEQ PO (05:15)
[2024-01-20 07:02] VITALS: BP 150/86; PULSE 95; RESP 18; TEMP 36.9; O2SAT 98
== END 2024-01-20 07:03 | disposition home or self-care (01) ==
PROVIDERS: Emergency Provider Emergency Medicine
DX: K52.9 Noninfective gastroenteritis and colitis, unspecified (principal); E87.6 Hypokalemia
CPT/HCPCS: 36415; 80053; 85025; 99283; 99284

== ENCOUNTER 2024-03-01 12:09 | Emergency (ER) | payer OTHER, SELFPAY ==
[2024-03-01 12:17] VITALS: BP 160/98; PULSE 91; RESP 16; TEMP 36.6; O2SAT 100; BMI 25.1
--- NOTE | 2024-03-01 12:17 | ED_ITS ---
HPI - General Adult General Chief complaint: Skin/Abscess/Foreign Body Stated complaint: Lump On L Arm Time Seen by Provider: 03/01/24 12:50 Source: patient Mode of arrival: ambulatory Limitations: no limitations History of Present Illness ED Provider: Matthew Clayton PA-C HPI narrative: 54 yold male who states no pmh presents to the right axilla mass that is red and painful for the past 3 days. patient states mass has increased in size. Patient denies any arm swelling, fever, chest pain, shorntess of breath, or any recent trauma. Patient denies any IV drug use Related Data Home Medications ?Medication ?Instructions ?Recorded ?Confirmed esomeprazole magnesium 20 mg 20 mg PO DAILY PRN Heartburn 12/10/23 12/10/23 capsule,delayed release (Nexium) naproxen sodium 220 mg tablet 220 mg PO BID PRN Pain 12/10/23 12/10/23 (Aleve) Previous Rx's ?Medication ?Instructions ?Recorded albuterol sulfate 90 mcg/actuation 2 puff inhalation Q4-6H PRN 10/15/23 aerosol inhaler (ProAir HFA) shortness of breath or wheezing #6.7 grams ciprofloxacin HCl 500 mg tablet 500 mg PO BID #14 tabs 01/11/24 (Cipro) dicyclomine 20 mg tablet 20 mg PO TID PRN abdominal pain 01/11/24 #14 tabs metronidazole 500 mg tablet 500 mg PO BID 7 days #14 tabs 01/11/24 cephalexin 500 mg capsule 500 mg PO QID 7 days #28 caps 03/01/24 doxycycline hyclate 100 mg tablet 100 mg PO BID 7 days #14 tabs 03/01/24 naproxen 500 mg tablet 500 mg PO BID PRN pain 7 days #14 03/01/24 tabs Allergies Allergy/AdvReac Type Severity Reaction Status Date / Time No Known Allergies Allergy Verified 03/01/24 12:17 Review of Systems 2 Review of Systems: Right axilla pain. Yes all other systems are reviewed and are negative PMFSH Past Medical History Medical History Feeling unwell Ex-smoker Social History Social History Alcohol intake: current Alcohol intake frequency: holidays/special occasions only Alcohol type: beer Comment: 2 24oz beers, several times per week Patient Tobacco Use Status: Former Tobacco user Advance Directives: Yes Advance Directives on File: Yes Advance Directives Date on File: 12/15/23 service: No Physical Exam ED Vital Signs: Vital Signs - 24 hr 03/01/24 12:17 03/01/24 14:00 03/01/24 15:41 Temperature 97.8 F 98.4 F 98.7 F Pulse Rate 91 84 84 Respiratory Rate 16 16 16 Blood Pressure 160/98 H 149/76 H 155/100 H Pulse Oximetry 100 96 97 Oxygen Delivery Method Room Air Room Air Room Air BMI result Body Mass Index 25.1 Const General: cooperative, healthy appearing, comfortable, no acute distress, well developed, alert, awake and Physically active Orientation/consciousness: oriented to person, oriented to place, oriented to time and patient oriented x3 HENMT Head: Yes normal to inspection, Yes No palpable skull fracture present, Yes normocephalic, Yes atraumatic and No abrasion Eyes General: appearance normal, both eyes and all related structures Neck Neck: Yes normal visual inspection, Yes full ROM, Yes no lymphadenopathy, Yes no meningeal signs, Yes trachea midline, Yes supple, No anterior neck swelling and No tender Chest Chest palpation & inspection: normal inspection of the chest and normal palpation of entire chest wall Chest/axillae images: 2 1. positive for erythematous fluctuant mass and axilla. Resp Effort & Inspection: normal respiratory effort and able to speak in complete sentences Auscultation: clear to auscultation bilaterally Cardio Jugular venous distension: no JVD Heart sounds: S1 normal heart sound present and S2 normal heart sound present GI Inspection: Yes normal to inspection Palpation (GI): Soft to palpation, not firm, nontender, no guarding and not rigid General: No CVA tenderness and Yes no CVA tenderness Back/Spine/Pelvis Back: no CVA tenderness, No CVA tenderness and No back tenderness Skin General skin exam: no rashes or lesions noted, elasticity normal and turgor normal Neuro General: oriented to person, oriented to place, oriented to time, patient oriented x3, gait normal, tone normal, moves all extremities, Normal light touch and pain sensation, no meningeal signs, no focal motor deficits, CN's II-XI intact bilaterally and normal sensation to monofilament Extrem General: Yes normal to inspection, Yes full ROM and Yes capillary refill normal Psych Appearance: grossly normal, well kempt and not disheveled Course Course Course Narrative: This is a rapid medical exam completed by Jody DUMONTN: Additional HPI, ROS, PE not included below will be deferred to primary provider. Erythemic lump under right axilla since late Friday. Burning/electrical sensation Medications Administered Discontinued Medications Generic Name Dose Route Start Last Admin Trade Name Kiana PRN Reason Stop Dose Admin Lidocaine HCl 5 ml 03/01/24 14:24 03/01/24 15:41 Lidocaine Hcl 1 % Mpf 5 Ml Vial INFILTRATI 03/01/24 14:25 5 ml ONCE ONE Administration Lidocaine HCl 5 ml 03/01/24 14:24 03/01/24 15:41 Lidocaine Hcl 1 % Mpf 5 Ml Vial INFILTRATI 03/01/24 14:25 5 ml ONCE ONE Administration Medical Decision Making Medical Decision Making MDM Narrative: 54-year-old male with right axilla abscess. Bedside ultrasound shows some collection will do incision and drainage. Patient vital signs stable. 3:15pm: Lidocaine 5 mL used for anesthesia. 1% lidocaine was used. For local anesthesia. Area cleaned with sterile saline Betadine iodine. Size 11 blade used for incision. Yellow pus was drained. Normal saline flush used for washout. Forcep was used to break up pockets to flush out. No need for any packing. Patient up-to-date with tetanus. Patient will be discharged antibiotics. patient explained worrisome signs and informed to return to the ED immediately if he has Differential Diagnosis Differential Diagnoses: The differential diagnosis associated with the presentation includes ( Hidradenitis, abscess,) Admission/Observation Consideration of admission/observation: Escalation of care including admission/observation considered Discharge Plan Discharge Clinical Impression: Abscess of skin or subcutaneous tissue, Hidradenitis Patient Disposition: Home, Self-Care Instructions: Abscess (ED), Hidradenitis Suppurativa (ED) Additional Instructions: you will be discharged with antibiotics. return to the ED immediately for severe pain, swelling of right upper extremity, profuse discharge, red streaks, chest pain, shortness of breath, or any other concerning symptoms. Return to the ED in 2 days for wound re-evaluation. Recommend follow-up with primary care provider Prescriptions: New doxycycline hyclate 100 mg tablet 100 mg PO BID 7 Days Qty: 14 0RF cephalexin 500 mg capsule 500 mg PO QID 7 Days Qty: 28 0RF naproxen 500 mg tablet 500 mg PO BID PRN (Reason: pain) 7 Days Qty: 14 0RF No Action albuterol sulfate [ProAir HFA] 90 mcg/actuation HFA aerosol inhaler 2 puff inhalation Q4-6H PRN (Reason: shortness of breath or wheezing) Qty: 6.7 0RF naproxen sodium [Aleve] 220 mg Tablet 220 mg PO BID PRN (Reason: Pain) esomeprazole magnesium [Nexium] 20 mg Capsule,Delayed Release(Dr/Ec) 20 mg PO DAILY PRN (Reason: Heartburn) ciprofloxacin HCl [Cipro] 500 mg tablet 500 mg PO BID Qty: 14 0RF metronidazole 500 mg tablet 500 mg PO BID 7 Days Qty: 14 0RF dicyclomine 20 mg tablet 20 mg PO TID PRN (Reason: abdominal pain) Qty: 14 0RF Stand Alone Forms: Work/School Release Interventions: ED Discharge Assessment Last Done: 03/01/24 15:41 Discharge Date/Time: 03/01/24 15:42 Print Language: Turkish
[2024-03-01 14:00] VITALS: BP 149/76; PULSE 84; RESP 16; TEMP 36.9; O2SAT 96
[2024-03-01 15:41] VITALS: BP 155/100; PULSE 84; RESP 16; TEMP 37.1; O2SAT 97
[2024-03-01] MEDS: Lidocaine HCl 1 % MPF 5 ML VIAL INFILTRATI ×2 (15:41)
== END 2024-03-01 15:42 | disposition home or self-care (01) ==
PROVIDERS: Emergency Provider Emergency Medicine; PCP Hospitalist
DX: L73.2 Hidradenitis suppurativa (principal); R22.31 Localized swelling, mass and lump, right upper limb; Z87.891 Personal history of nicotine dependence; Z79.899 Other long term (current) drug therapy
CPT/HCPCS: 10060; 99283; 99284

== ENCOUNTER 2024-03-24 21:54 | Emergency (ER) | payer SELFPAY ==
--- NOTE | ~2024-03-24 | CT_ITS ---
EXAMINATION: CT FACIAL BONES WITH CONTRAST CLINICAL INFORMATION: Facial swelling and pain. Concern for abscess. COMPARISON: None available. TECHNIQUE: Contiguous axial contrast-enhanced CT scan images of the facial bones obtained after intravenous administration of 85 mL cc of Omnipaque 350. Sagittal and coronal reformatted images also obtained. This CT examination was performed using dose optimization techniques as appropriate, variously including the following: *Automated exposure control *Adjustment of mA and/or kV according to patient size (this includes techniques or standardized protocols for targeted exams where dose is matched to indication/reason for exam; i.e. extremities or head) *Use of iterative reconstruction technique DLP: 350 mGy-cm FINDINGS: There is mucosal thickening inferior left maxillary sinus. The remaining visualized maxillofacial sinuses and the mastoids are clear. Orbital structures are unremarkable. There is left maxillary molar/premolar dental disease with periapical lucency is also labial soft tissue swelling.. There is left facial soft tissue swelling without discrete collection. CT/CT facial bones w IV con IMPRESSION: 1. Left facial and labial soft tissue swelling without discrete collection. 2. Left maxillary molar/premolar dental disease with periapical lucency.
[2024-03-24 22:24] VITALS: BP 121/78; PULSE 99; RESP 18; TEMP 36.6; O2SAT 92; BMI 25.1
--- NOTE | 2024-03-24 22:40 | PC.NURSE ---
Spoke with provider about patient, provider requesting septic work p and pt be brought back, nurse discharge aware. Labs ordered
[2024-03-24 23:08] VITALS: BP 124/77; PULSE 90; RESP 18; TEMP 37.1; O2SAT 95
[2024-03-24 23:12] LABS: MANUAL DIFF FLAG NO
[2024-03-24 23:13] LABS: Basophils Percent Auto 0.5 % (0-2); Eosinophils Percent Auto 0.7 % (0-4); Hematocrit 36.5 % (42.0-52.0); Hemoglobin 12.9 g/dl (14.0-18.0); Imm Gran Abs Auto 0.02 X10*3/uL (0.00-0.03); Imm Gran Pct Auto 0.4 % (0.0-0.4); Lymphocytes Absolute Auto 1.4 X10*3/uL (1.2-4.9); Lymphocytes Percent Auto 25.6 % (20-40); Mean Corpuscular HGB Conc 35.3 g/dl (31.0-36.0); Mean Corpuscular Hemoglobin 31.3 pg (27.0-33.0); Mean Corpuscular Volume 88.6 fL (80.0-98.0); Mean Platelet Volume 10.1 fL (9.4-12.4); Monocytes Absolute Auto 0.7 X10*3/uL (0.1-1.2); Monocytes Percent Auto 11.9 % (2-11); Neutrophils Absolute Auto 3.4 x10*3/uL (2.0-8.3); Neutrophils Percent Auto 60.9 % (45-73); Platelet Count 218 X10*3/uL (160-400); Red Blood Count 4.12 X10*6/uL (4.60-5.80); Red Cell Distribution Width 13.1 % (11.0-16.0); White Blood Count 5.6 X10*3/uL (4.8-10.8)
[2024-03-24 23:21] LABS: Lactic Acid 1.9 mmol/L (0.5-2.0)
[2024-03-24 23:26] LABS: Alanine Aminotransferase 16 U/L (0-40); Albumin Level 3.9 g/dL (3.5-5.0); Alkaline Phosphatase 64 U/L (39-117); Anion Gap 18 (12-20); Aspartate Amino Transferase 19 U/L (5-37); Bilirubin Total 0.1 mg/dL (0.0-1.0); Blood Urea Nitrogen 10 mg/dL (9-16); Calcium 8.6 mg/dL (8.4-10.2); Carbon Dioxide 18 mmol/L (22-29); Chloride 111 mmol/L (96-108); Creatinine Clr Calc Pharmacy 122.3; Estimated Glomerular Filt Rate > 60; Glucose Random 102 mg/dL (60-115); Sodium 143 mmol/L (135-145); Total Protein 6.8 g/dL (6.5-8.0)
[2024-03-25] MEDS: iohexoL 350 MG/ML 100 ML INFUS..BTL 85 ML IV (00:04)
[2024-03-25 01:37] VITALS: BP 118/76; PULSE 84; RESP 14; TEMP 36.7; O2SAT 98
[2024-03-25 03:48] VITALS: BP 133/81; PULSE 76; RESP 17; TEMP 36.6; O2SAT 97
--- NOTE | 2024-03-25 04:22 | ED.GENADULT ---
HPI - General Adult General Chief complaint: General Medical Stated complaint: abcess in mouth Time Seen by Provider: 03/25/24 04:14 Source: patient Mode of arrival: ambulatory Limitations: no limitations History of Present Illness ED Provider: Dr. Abrahan Booker HPI narrative: 54-year-old male with no significant past medical history who presents emergency department for evaluation of swelling, pain nares and drainage of pus from his right nares. He also has noted swelling of his upper gum line. He states that these symptoms started he states that when he pushes on the roof of his mouth or on the gums in his mouth possible be expressed from his right nares. He states that he is having pain in both nares secondary to the swelling. He denied fever, chills, fatigue or weakness. Patient has no teeth in his upper jaw. Related Data Home Medications ?Medication ?Instructions ?Recorded ?Confirmed esomeprazole magnesium 20 mg 20 mg PO DAILY PRN Heartburn 12/10/23 12/10/23 capsule,delayed release (Nexium) naproxen sodium 220 mg tablet 220 mg PO BID PRN Pain 12/10/23 12/10/23 (Aleve) Previous Rx's ?Medication ?Instructions ?Recorded albuterol sulfate 90 mcg/actuation 2 puff inhalation Q4-6H PRN 10/15/23 aerosol inhaler (ProAir HFA) shortness of breath or wheezing #6.7 grams ciprofloxacin HCl 500 mg tablet 500 mg PO BID #14 tabs 01/11/24 (Cipro) dicyclomine 20 mg tablet 20 mg PO TID PRN abdominal pain 01/11/24 #14 tabs metronidazole 500 mg tablet 500 mg PO BID 7 days #14 tabs 01/11/24 cephalexin 500 mg capsule 500 mg PO QID 7 days #28 caps 03/01/24 doxycycline hyclate 100 mg tablet 100 mg PO BID 7 days #14 tabs 03/01/24 naproxen 500 mg tablet 500 mg PO BID PRN pain 7 days #14 03/01/24 tabs acetaminophen 500 mg tablet 1,000 mg (2 x 500 mg) PO Q6H PRN 03/25/24 (Tylenol Extra Strength) fever or pain #20 tabs clindamycin HCl 300 mg capsule 600 mg (2 x 300 mg) PO TID 7 days 03/25/24 (Cleocin HCl) #42 caps ibuprofen 400 mg tablet 400 mg PO TID PRN fever or pain 03/25/24 #30 tabs oxycodone 5 mg tablet 5 mg PO Q6H PRN pain #10 tabs 03/25/24 Allergies Allergy/AdvReac Type Severity Reaction Status Date / Time No Known Allergies Allergy Verified 03/24/24 22:35 [facility] Past Medical History Medical History Feeling unwell Ex-smoker Social History Social History Alcohol intake: current Alcohol intake frequency: holidays/special occasions only Alcohol type: beer Comment: 2 24oz beers, several times per week Patient Tobacco Use Status: Former Tobacco user Advance Directives: Yes Advance Directives on File: Yes Advance Directives Date on File: 12/15/23 Do you have a plan to hurt others: No Plan service: No Physical Exam ED Vital Signs: Vital Signs - 24 hr 03/24/24 22:24 03/24/24 23:08 03/25/24 01:37 Temperature 97.8 F 98.7 F 98.1 F Pulse Rate 99 90 84 Respiratory Rate 18 18 14 Blood Pressure 121/78 124/77 118/76 Pulse Oximetry 92 95 98 Oxygen Delivery Method Room Air Room Air Room Air 03/25/24 03:48 Temperature 97.8 F Pulse Rate 76 Respiratory Rate 17 Blood Pressure 133/81 Pulse Oximetry 97 Oxygen Delivery Method Room Air BMI result Body Mass Index 25.1 Vital signs were normal Exam: General: Awake, alert in no distress Nose and mouth: The patient has erythema and swelling to the left and right nares along the septum. This area is warm to the touch and indurated with no flocculence. I was unable to express pus by pudding pressure on the areas of induration. The upper mouth is edentulous, he does have some swelling below the upper lip with tenderness in this area. The patient's soft palate appears to be normal with no abscess. Medications Administered Discontinued Medications Generic Name Dose Route Start Last Admin Trade Name Freq PRN Reason Stop Dose Admin Iohexol 85 ml 03/25/24 00:04 03/25/24 00:04 Iohexol 350 Mg/Ml 100 Ml Infus..Btl IV 03/25/24 00:05 85 ml ONCE ONE Administration Medical Decision Making Medical Decision Making MDM Narrative: 54-year-old male who presents emergency department for evaluation of swelling and pain of his areas bilaterally with pus draining from the right nares. He is also complained of swelling along the gumline underneath his upper lip. Patient's vital signs were normal. Physical examination did reveal swelling and induration of his nares bilaterally along the septum with no obvious abscess. Patient's mouth was edentulous with inflammation noted underneath the upper lip with tenderness palpation of this area but no obvious abscess that needs to be drained. Differential diagnosis: ?Includes but is not limited to nasal abscess, gingival abscess, soft palate abscess, nasal infection Following evaluation was ordered: CBC, CMP, lactic acid, blood cultures x2, CT scan of the facial bones with IV contrast Patient was initially treated with the following: Tylenol 975 mg orally, clindamycin 600 mg orally Course: 04:48 My independent interpretation patient's laboratory evaluation as follows: 1600. CMP was normal. Lactic acid was normal 1.9. CT scan of the facial bones with IV contrast did not reveal any clear abscess but did reveal soft tissue swelling. At this time I suspect that the patient's findings are consistent with a cellulitis of the nares bilaterally with inflammatory changes to his inner lip. I do not think that there was an abscess that needs to be drained and I did discuss this with him. The patient was started on clindamycin 600 mg 3 times a day for 7 days, Tylenol and ibuprofen and for pain not relieved by these medications he was prescribed oxycodone. I did tell the patient that if his symptoms get worse over the [facility] where they have an ears Nose and Throat surgeon that may be able to drain an abscess that develops. Admission/Observation Consideration of admission/observation: Escalation of care including admission/observation considered Lab Data [facility] Lab Attestation statement: I reviewed the patient's lab results. 03/24/24 23:03 03/24/24 23:03 Labs: Lab Results 03/24/24 Range/Units 23:03 WBC 5.6 (4.8-10.8) X10*3/uL RBC 4.12 L (4.60-5.80) X10*6/uL Hgb 12.9 L (14.0-18.0) g/dl Hct 36.5 L (42.0-52.0) % MCV 88.6 (80.0-98.0) fL MCH 31.3 (27.0-33.0) pg MCHC 35.3 (31.0-36.0) g/dl RDW 13.1 (11.0-16.0) % Plt Count 218 (160-400) X10*3/uL MPV 10.1 (9.4-12.4) fL Immature Gran % (Auto) 0.4 (0.0-0.4) % Neut % (Auto) 60.9 (45-73) % Lymph % (Auto) 25.6 (20-40) % Davison % (Auto) 11.9 H (2-11) % Eos % (Auto) 0.7 (0-4) % Baso % (Auto) 0.5 (0-2) % Lymph # (Auto) 1.4 (1.2-4.9) X10*3/uL Davison # (Auto) 0.7 (0.1-1.2) X10*3/uL Eos # (Auto) 0.0 (0.0-0.4) X10*3/uL Baso # (Auto) 0.0 (0.0-0.2) X10*3/uL Abs Immat Gran (auto) 0.02 (0.00-0.03) X10*3/uL Absolute Neuts (auto) 3.4 (2.0-8.3) x10*3/uL Absolute Nucleated RBC 0.000 (0.0-0.012) X10*3/uL Nucleated RBC % (auto) 0.0 (0.0-0.2) /100WBC Sodium 143 (135-145) mmol/L Potassium 4.0 D (3.3-5.1) mmol/L Chloride 111 H (96-108) mmol/L Carbon Dioxide 18 L (22-29) mmol/L Anion Gap 18 (12-20) BUN 10 (9-16) mg/dL Creatinine 0.66 (0.5-1.4) mg/dL Estim Creat Clear Calc 122.3 Estimated GFR > 60 Random Glucose 102 (60-115) mg/dL Lactic Acid 1.9 (0.5-2.0) mmol/L Calcium 8.6 D (8.4-10.2) mg/dL Total Bilirubin 0.1 (0.0-1.0) mg/dL AST 19 (5-37) U/L ALT 16 (0-40) U/L Alkaline Phosphatase 64 (39-117) U/L Total Protein 6.8 (6.5-8.0) g/dL Albumin 3.9 (3.5-5.0) g/dL Radiology Impression Discussion of test interpretation with radiology: I have reviewed the radiologist's reading. Radiologist Impression: CT facial bones w IV con IMPRESSION: 1. Left facial and labial soft tissue swelling without discrete collection. 2. Left maxillary molar/premolar dental disease with periapical lucency. Dictated By: Nav Stinson MD Prescription Management I considered prescription management with: Pain Medication and Antibiotic Discharge Plan Discharge Clinical Impression: Infection of nose Patient Disposition: Home, Self-Care Additional Instructions: Your white blood cell count was normal. The rest of your blood work was unremarkable except for mild anemia. The CT scan of your face did not reveal an obvious abscess that needs to be drained at this time. I believe that you do have an infection of your nose which is causing inflammation in your mouth as well. Take clindamycin 300 mg pills, 2 pills 3 times a day (every 6 hours while you are awake) for [address] a wet washcloth in your microwave and he would up until it is warm but not hot enough to burn your skin . Then apply this washcloth to the outside of your nose for 15 minutes. Do this every 2 hours for the next 1-2 day while you are awake. This will increase the blood flow to your nose and help the healing process. If there is a small abscess it will help the abscess come to a head and drain. Take ibuprofen 400 mg pills, 1 pills every 6 hours as needed for pain. Take Tylenol (acetaminophen) 500 mg pills, 2 pills every 6 hours as needed for pain. For pain not relieved by ibuprofen or Tylenol take oxycodone 5 mg pills, 1 pill every 4 hours as needed for pain. Do not drive or work while taking this medication since they can cause sleepiness. Oxycodone is a narcotic medication that can be addicting. If you are concerned about addiction you can ask the pharmacist for less pills or do not get this prescription filled. If your symptoms are getting worse then you will need to be seen by an Ears Nose and Throat doctor (ENT). We do not have this specialist here at this emergency department so I recommend that if your symptoms get worse you go to [facility]. Please see the work note Prescriptions: New acetaminophen [Tylenol Extra Strength] 500 mg tablet 1,000 mg PO Q6H PRN (Reason: fever or pain) Qty: 20 0RF ibuprofen 400 mg tablet 400 mg PO TID PRN (Reason: fever or pain) Qty: 30 0RF oxycodone 5 mg tablet 5 mg PO Q6H PRN (Reason: pain) Qty: 10 0RF Rx Instructions: Patient may request partial refill; Partial Fill upon patient request. clindamycin HCl [Cleocin HCl] 300 mg capsule 600 mg PO TID 7 Days Qty: 42 0RF No Action albuterol sulfate [ProAir HFA] 90 mcg/actuation HFA aerosol inhaler 2 puff inhalation Q4-6H PRN (Reason: shortness of breath or wheezing) Qty: 6.7 0RF naproxen sodium [Aleve] 220 mg Tablet 220 mg PO BID PRN (Reason: Pain) esomeprazole magnesium [Nexium] 20 mg Capsule,Delayed Release(Dr/Ec) 20 mg PO DAILY PRN (Reason: Heartburn) ciprofloxacin HCl [Cipro] 500 mg tablet 500 mg PO BID Qty: 14 0RF metronidazole 500 mg tablet 500 mg PO BID 7 Days Qty: 14 0RF dicyclomine 20 mg tablet 20 mg PO TID PRN (Reason: abdominal pain) Qty: 14 0RF doxycycline hyclate 100 mg tablet 100 mg PO BID 7 Days Qty: 14 0RF cephalexin 500 mg capsule 500 mg PO QID 7 Days Qty: 28 0RF naproxen 500 mg tablet 500 mg PO BID PRN (Reason: pain) 7 Days Qty: 14 0RF Stand Alone Forms: Work/School Release Print Language: Citizen [place]
[2024-03-25] MEDS: Clindamycin HCL 300 MG CAPSULE 600 MG PO (04:56)
[2024-03-25] MEDS: Acetaminophen 325 MG TABLET 975 MG PO (04:56)
[2024-03-25 04:58] VITALS: BP 149/96; PULSE 81; RESP 19; TEMP 36.6; O2SAT 99
[2024-03-25 05:08] VITALS: BP 149/96; PULSE 81; RESP 19; TEMP 36.6; O2SAT 99
== END 2024-03-25 05:12 | disposition home or self-care (01) ==
PROVIDERS: Emergency Provider Emergency Medicine Emergency Medical Services; PCP Hospitalist
DX: J01.90 Acute sinusitis, unspecified (principal); K05.10 Chronic gingivitis, plaque induced; J34.89 Other specified disorders of nose and nasal sinuses; Z79.899 Other long term (current) drug therapy
CPT/HCPCS: 36415; 70487; 80053; 83605; 85025; 87040; 99283; 99284; Q9967

== ENCOUNTER 2024-06-01 22:59 | Emergency (ER) | payer BC, SELFPAY ==
[2024-06-01 23:03] VITALS: BP 123/83; PULSE 92; RESP 18; TEMP 36.7; O2SAT 98; BMI 25.0
[2024-06-01 23:52] LABS: Hematocrit 39.8 % (42.0-52.0); Hemoglobin 14.2 g/dl (14.0-18.0); Mean Corpuscular HGB Conc 35.7 g/dl (31.0-36.0); Mean Corpuscular Hemoglobin 30.7 pg (27.0-33.0); Mean Corpuscular Volume 86.1 fL (80.0-98.0); Mean Platelet Volume 9.6 fL (9.4-12.4); Platelet Count 229 X10*3/uL (160-400); Red Blood Count 4.62 X10*6/uL (4.60-5.80); White Blood Count 7.2 X10*3/uL (4.8-10.8)
[2024-06-02 00:02] LABS: Lactic Acid 1.5 mmol/L (0.5-2.0)
[2024-06-02 00:05] LABS: Anion Gap 15 (12-20); Blood Urea Nitrogen 9 mg/dL (9-16); Calcium 8.9 mg/dL (8.4-10.2); Carbon Dioxide 22 mmol/L (22-29); Chloride 108 mmol/L (96-108); Creatinine Clr Calc Pharmacy 101.7; Estimated Glomerular Filt Rate > 60; Glucose Fasting 99 mg/dL (60-99); Potassium 4.1 mmol/L (3.3-5.1); Sodium 141 mmol/L (135-145)
[2024-06-02 00:26] LABS: Erythrocyte Sedimentation Rate 10 MM/HR (0-15)
[2024-06-02 01:47] VITALS: BP 121/73; PULSE 70; RESP 16; TEMP 36.8; O2SAT 96
--- NOTE | 2024-06-02 02:30 | ED.SKABFB ---
HPI - Skin/Abscess/Foreign Bdy General Chief complaint: Skin/Abscess/Foreign Body Stated complaint: Wound check Time Seen by Provider: 06/02/24 02:28 Source: patient Mode of arrival: ambulatory Limitations: no limitations History of Present Illness ED Provider: Dr. Redding HPI narrative: Patient with and infected abscess to his right chest wall for the past 4 weeks, states that it is still draining pus. He has been doing his own local wound care for weeks. Onset (ago): week(s) Related Data Home Medications ?Medication ?Instructions ?Recorded ?Confirmed esomeprazole magnesium 20 mg 20 mg PO DAILY PRN Heartburn 12/10/23 12/10/23 capsule,delayed release (Nexium) naproxen sodium 220 mg tablet 220 mg PO BID PRN Pain 12/10/23 12/10/23 (Aleve) Previous Rx's ?Medication ?Instructions ?Recorded albuterol sulfate 90 mcg/actuation 2 puff inhalation Q4-6H PRN 10/15/23 aerosol inhaler (ProAir HFA) shortness of breath or wheezing #6.7 grams ciprofloxacin HCl 500 mg tablet 500 mg PO BID #14 tabs 01/11/24 (Cipro) dicyclomine 20 mg tablet 20 mg PO TID PRN abdominal pain 01/11/24 #14 tabs metronidazole 500 mg tablet 500 mg PO BID 7 days #14 tabs 01/11/24 cephalexin 500 mg capsule 500 mg PO QID 7 days #28 caps 03/01/24 doxycycline hyclate 100 mg tablet 100 mg PO BID 7 days #14 tabs 03/01/24 naproxen 500 mg tablet 500 mg PO BID PRN pain 7 days #14 03/01/24 tabs acetaminophen 500 mg tablet 1,000 mg (2 x 500 mg) PO Q6H PRN 03/25/24 (Tylenol Extra Strength) fever or pain #20 tabs clindamycin HCl 300 mg capsule 600 mg (2 x 300 mg) PO TID 7 days 03/25/24 (Cleocin HCl) #42 caps ibuprofen 400 mg tablet 400 mg PO TID PRN fever or pain 03/25/24 #30 tabs oxycodone 5 mg tablet 5 mg PO Q6H PRN pain #10 tabs 03/25/24 bacitracin 500 unit/gram topical 1 appl topical DAILY #1,022.4 grams 06/02/24 ointment cephalexin 500 mg capsule 500 mg PO Q6H #20 caps 06/02/24 Allergies Allergy/AdvReac Type Severity Reaction Status Date / Time No Known Allergies Allergy Verified 06/01/24 23:08 Review of Systems Review of Systems: Yes all other systems are reviewed and are negative Neurologic: Denies Sensory deficit (Neuro) [facility] Past Medical History Medical History Feeling unwell Ex-smoker Social History Social History Alcohol intake: current Alcohol intake frequency: holidays/special occasions only Alcohol type: beer Comment: 2 24oz beers, several times per week Patient Tobacco Use Status: Former Tobacco user Advance Directives: Yes Advance Directives on File: Yes Advance Directives Date on File: 12/15/23 Do you have a plan to hurt others: No Plan service: No Physical Exam Vital Signs: Vital Signs: Last Vital Signs Temp 98.2 F 06/02/24 01:47 Pulse 70 06/02/24 01:47 Resp 16 06/02/24 01:47 BP 121/73 06/02/24 01:47 Pulse Ox 96 06/02/24 01:47 O2 Del Method Room Air 06/02/24 01:47 BMI result Body Mass Index 25.0 Const: Other: Male looking older than stated age Nutritional Appearance: average body habitus Orientation/consciousness: oriented to person and patient oriented x3 Limitations: no limitations HEENT: Head: Yes normal to inspection Ears: external ears normal General nose exam: Normal external nose present Mouth: Normal oral and palatal mucosa present and oropharynx normal Throat: Yes posterior oropharynx normal Eyes: General: appearance normal, both eyes and all related structures Neck: Other: supple Neck: Yes normal visual inspection Chest: Chest palpation & inspection: normal inspection of the chest Resp: Auscultation: clear to auscultation bilaterally Cardio: Jugular venous distension: no JVD Rate: regular rate Rhythm: regular rhythm Heart sounds: S1 normal heart sound present and S2 normal heart sound present GI: Inspection: Yes normal to inspection Palpation (GI): Soft to palpation, nontender and No hepatosplenomegaly present Auscultation: normal bowel sounds : General: Yes no CVA tenderness Back/Spine/Pelvis: Back: no CVA tenderness Skin: Other: to the lateral right chest wall the patient has a 7cm black escar that is draining pus. Neuro: General: oriented to person and patient oriented x3 Cranial nerves: Yes CN's II-XII intact bilaterally Motor exam (neuro): 5/5 motor strength present throughout Sensory Exam: No Sensory deficit (Neuro) Extrem: General: Yes normal to inspection Psych: Appearance: grossly normal Course Reevaluation(s) Reevaluation #1: Procedure: wound cleaned with betadine, softened with peroxide. Black escar removed with underlying good granulation tissue no active pus, margins are clean Time: 02:51 Medical Decision Making Differential Diagnosis Differential Diagnoses: The differential diagnosis associated with the presentation includes (abscess, wound debriedment, cellulitis) Admission/Observation Consideration of admission/observation: Escalation of care including admission/observation considered (upon arrival patient considered for admission) Lab Data 06/01/24 23:44 06/01/24 23:44 Labs: Lab Results 06/01/24 Range/Units 23:44 WBC 7.2 (4.8-10.8) X10*3/uL RBC 4.62 (4.60-5.80) X10*6/uL Hgb 14.2 (14.0-18.0) g/dl Hct 39.8 L (42.0-52.0) % MCV 86.1 (80.0-98.0) fL MCH 30.7 (27.0-33.0) pg MCHC 35.7 (31.0-36.0) g/dl RDW 13.0 (11.0-16.0) % Plt Count 229 (160-400) X10*3/uL MPV 9.6 (9.4-12.4) fL Absolute Nucleated RBC 0.000 (0.0-0.012) X10*3/uL Nucleated RBC % (auto) 0.0 (0.0-0.2) /100WBC ESR 10 (0-15) MM/HR Sodium 141 (135-145) mmol/L Potassium 4.1 (3.3-5.1) mmol/L Chloride 108 (96-108) mmol/L Carbon Dioxide 22 (22-29) mmol/L Anion Gap 15 (12-20) BUN 9 (9-16) mg/dL Creatinine 0.82 (0.5-1.4) mg/dL Estim Creat Clear Calc 101.7 Estimated GFR > 60 Fasting Glucose 99 (60-99) mg/dL Lactic Acid 1.5 (0.5-2.0) mmol/L Calcium 8.9 (8.4-10.2) mg/dL Social Determinants Patient?s care significantly limited by Social Determinants of Health including: Inadequate housing and Low income Discharge Plan Discharge Clinical Impression: Abscess of skin or subcutaneous tissue Patient Disposition: Home, Self-Care Instructions: Abscess Follow-up (ED) Additional Instructions: clean wound once a day and apply bacitracin to it. Prescriptions: New cephalexin 500 mg capsule 500 mg PO Q6H Qty: 20 0RF bacitracin 500 unit/gram ointment 1 appl topical DAILY Qty: 1022.4 0RF No Action albuterol sulfate [ProAir HFA] 90 mcg/actuation HFA aerosol inhaler 2 puff inhalation Q4-6H PRN (Reason: shortness of breath or wheezing) Qty: 6.7 0RF naproxen sodium [Aleve] 220 mg Tablet 220 mg PO BID PRN (Reason: Pain) esomeprazole magnesium [Nexium] 20 mg Capsule,Delayed Release(Dr/Ec) 20 mg PO DAILY PRN (Reason: Heartburn) ciprofloxacin HCl [Cipro] 500 mg tablet 500 mg PO BID Qty: 14 0RF metronidazole 500 mg tablet 500 mg PO BID 7 Days Qty: 14 0RF dicyclomine 20 mg tablet 20 mg PO TID PRN (Reason: abdominal pain) Qty: 14 0RF doxycycline hyclate 100 mg tablet 100 mg PO BID 7 Days Qty: 14 0RF cephalexin 500 mg capsule 500 mg PO QID 7 Days Qty: 28 0RF naproxen 500 mg tablet 500 mg PO BID PRN (Reason: pain) 7 Days Qty: 14 0RF acetaminophen [Tylenol Extra Strength] 500 mg tablet 1,000 mg PO Q6H PRN (Reason: fever or pain) Qty: 20 0RF ibuprofen 400 mg tablet 400 mg PO TID PRN (Reason: fever or pain) Qty: 30 0RF oxycodone 5 mg tablet 5 mg PO Q6H PRN (Reason: pain) Qty: 10 0RF Rx Instructions: Patient may request partial refill; Partial Fill upon patient request. clindamycin HCl [Cleocin HCl] 300 mg capsule 600 mg PO TID 7 Days Qty: 42 0RF Referrals: Evan Rosa MD [Primary Care Provider] - 5 days Print Language: [place]ese
[2024-06-02] MEDS: Bacitracin Oint 0.9 GM PACKET 1 APPL TOPICAL (03:21)
[2024-06-02] MEDS: cephALEXin 500 MG CAPSULE PO (03:21)
[2024-06-02 03:31] VITALS: BP 121/73; PULSE 70; RESP 16; TEMP 36.8; O2SAT 96
== END 2024-06-02 03:31 | disposition home or self-care (01) ==
PROVIDERS: Emergency Provider Emergency Medicine; PCP Hospitalist
DX: L02.213 Cutaneous abscess of chest wall (principal); Z79.899 Other long term (current) drug therapy
CPT/HCPCS: 36415; 80048; 83605; 85027; 85652; 87040; 99283